=== PATIENT | male | born 1940 | race Caucasian/White ===

== ENCOUNTER 2020-01-27 07:38 | Outpatient (REF) | payer MEDICARE, OTHER, SELFPAY ==
[2020-01-27 11:32] LABS: Hematocrit 49.7 % (42-52); Hemoglobin 16.5 g/dl (14.0-18.0); Mean Corpuscular HGB Conc 33.2 g/dl (31.0-36.0); Mean Corpuscular Volume 90.4 fL (80-98); Mean Platelet Volume 9.6 fL (9.4-12.4); Platelet Count 142 X10*3/uL (160-400); Red Cell Distribution Width 16.1 % (11.0-16.0); White Blood Count 5.7 X10*3/uL (4.8-10.8)
[2020-01-27 12:04] LABS: Iron 110 mcg/dL (45-160); Percent Iron Saturation 40 % (15-50); Total Iron Binding Capacity 274 mcg/dL (228-428); Unsaturated Iron Binding 164 ug/dL
[2020-01-27 12:07] LABS: Ferritin 56 ng/mL (20-250)
== END 2020-01-27 07:39 | disposition home or self-care (01) ==
LOC: HO.HMGCLDS 07:38
PROVIDERS: PCP Internal Medicine; Visit Provider Internal Medicine
DX: D50.9 Iron deficiency anemia, unspecified (principal); I10 Essential (primary) hypertension
CPT/HCPCS: 36415; 82728; 83540; 85027

== ENCOUNTER 2020-05-09 08:08 | Outpatient (REF) | payer MEDICARE, SELFPAY ==
[2020-05-09 11:31] LABS: Basophils Absolute Auto 0.1 X10*3/uL (0.0-0.2); Eosinophils Absolute Auto 0.3 X10*3/uL (0.0-0.4); Eosinophils Percent Auto 4.2 % (0-4); Hematocrit 47.6 % (42-52); Hemoglobin 15.3 g/dl (14.0-18.0); Imm Gran Abs Auto 0.02 X10*3/uL (0.00-0.03); Imm Gran Pct Auto 0.3 % (0.0-0.4); Lymphocytes Absolute Auto 2.1 X10*3/uL (1.2-4.9); Lymphocytes Percent Auto 35.7 % (20-40); MANUAL DIFF FLAG SCAN; Mean Corpuscular HGB Conc 32.1 g/dl (31.0-36.0); Mean Corpuscular Volume 96.4 fL (80-98); Mean Platelet Volume 10.6 fL (9.4-12.4); Monocytes Absolute Auto 0.6 X10*3/uL (0.1-1.2); Monocytes Percent Auto 9.5 % (2-11); Neutrophils Percent Auto 49.3 % (45-73); PLT CLUMP 1; Red Blood Count 4.94 X10*6/uL (4.60-5.80); SCAN SMEAR FLAG 1
[2020-05-09 12:39] LABS: SLIDE REVIEW VERIFIED
[2020-05-09 13:54] LABS: Alanine Aminotransferase 15 U/L (0-40); Anion Gap 17 (12-20); Aspartate Amino Transferase 29 U/L (5-37); Blood Urea Nitrogen 17 mg/dL (9-16); Calcium 8.6 mg/dL (8.4-10.2); Carbon Dioxide 20 mmol/L (22-29); Chloride 111 mmol/L (96-108); Cholesterol 103 mg/dL; Estimated Glomerular Filt Rate > 60; Glucose Fasting 107 mg/dL (60-99); HDL Cholesterol 34 mg/dL; Iron 64 mcg/dL (45-160); LDL Cholesterol Calculated 54 mg/dl; Percent Iron Saturation 23 % (15-50); Potassium 4.6 mmol/L (3.3-5.1); Sodium 143 mmol/L (135-145); Total Iron Binding Capacity 282 mcg/dL (228-428); Triglycerides 78 mg/dL; Unsaturated Iron Binding 218 ug/dL; Uric Acid 5.6 mg/dL (3.4-7.0)
== END 2020-05-09 08:09 | disposition home or self-care (01) ==
LOC: HO.HMGCLDS 08:08
PROVIDERS: PCP Internal Medicine; Visit Provider Internal Medicine
DX: E78.2 Mixed hyperlipidemia (principal); I71.4 Abdominal aortic aneurysm, without rupture; C16.0 Malignant neoplasm of cardia; I10 Essential (primary) hypertension; M10.9 Gout, unspecified; Z86.2 Personal history of diseases of the blood and blood-forming organs and certain disorders involving the immune mechanism
CPT/HCPCS: 36415; 80048; 80061; 83540; 84450; 84460; 84550; 85025

== ENCOUNTER 2020-06-22 11:15 | Outpatient (REF) | payer MEDICARE, SELFPAY ==
--- NOTE | ~2020-06-22 | XR_ITS ---
EXAMINATION: XR FOOT, LEFT CLINICAL INFORMATION: Left foot pain COMPARISON: None TECHNIQUE: AP, lateral, and oblique views of the left foot. FINDINGS: No acute fracture or dislocation. Small first metatarsophalangeal joint marginal osteophytes, with accompanying joint space narrowing. Small marginal osteophytes along the dorsal intertarsal articulation. Achilles tendon enthesopathy. Vascular calcifications. XR/XR foot LT min 3V IMPRESSION: [id number] first metatarsophalangeal joint arthrosis. Achilles tendon enthesopathy.
[2020-06-22 13:54] LABS: MANUAL DIFF FLAG NO
[2020-06-22 14:07] LABS: Basophils Percent Auto 0.7 % (0-2); Eosinophils Absolute Auto 0.2 X10*3/uL (0.0-0.4); Eosinophils Percent Auto 2.5 % (0-4); Hematocrit 46.1 % (42-52); Hemoglobin 15.5 g/dl (14.0-18.0); Imm Gran Abs Auto 0.02 X10*3/uL (0.00-0.03); Imm Gran Pct Auto 0.3 % (0.0-0.4); Lymphocytes Absolute Auto 1.5 X10*3/uL (1.2-4.9); Lymphocytes Percent Auto 24.5 % (20-40); Mean Corpuscular HGB Conc 33.6 g/dl (31.0-36.0); Mean Corpuscular Hemoglobin 30.7 pg (27.0-33.0); Mean Corpuscular Volume 91.3 fL (80-98); Mean Platelet Volume 10.2 fL (9.4-12.4); Monocytes Absolute Auto 0.5 X10*3/uL (0.1-1.2); Monocytes Percent Auto 8.7 % (2-11); Neutrophils Absolute Auto 3.8 X10*3/uL (2.0-8.3); Neutrophils Percent Auto 63.3 % (45-73); Platelet Count 185 X10*3/uL (160-400); Red Blood Count 5.05 X10*6/uL (4.60-5.80); Red Cell Distribution Width 14.6 % (11.0-16.0)
[2020-06-22 14:26] LABS: Alanine Aminotransferase 188 U/L (0-40); Albumin Level 3.6 g/dL (3.5-5.0); Alkaline Phosphatase 402 U/L (39-117); Anion Gap 13 (12-20); Aspartate Amino Transferase 406 U/L (5-37); Blood Urea Nitrogen 14 mg/dL (9-16); Calcium 9.1 mg/dL (8.4-10.2); Carbon Dioxide 27 mmol/L (22-29); Chloride 107 mmol/L (96-108); Estimated Glomerular Filt Rate > 60; Gamma Glutamyl Transpeptidase 428 U/L (11-51); Glucose Random 111 mg/dL (60-115); Potassium 4.6 mmol/L (3.3-5.1); Sodium 142 mmol/L (135-145); Total Protein 6.3 g/dL (6.5-8.0)
[2020-06-22 14:32] LABS: Alanine Aminotransferase 188 U/L (0-40); Aspartate Amino Transferase 401 U/L (5-37); Cholesterol 96 mg/dL; HDL Cholesterol 30 mg/dL; LDL Cholesterol Calculated 52 mg/dl; Triglycerides 70 mg/dL
[2020-06-22 15:28] LABS: Erythrocyte Sedimentation Rate 12 MM/HR (0-15)
== END 2020-06-22 11:16 | disposition home or self-care (01) ==
LOC: HO.HMGCX 11:15
PROVIDERS: PCP Internal Medicine; Visit Provider Internal Medicine Medical Oncology
DX: M79.672 Pain in left foot (principal); C16.0 Malignant neoplasm of cardia; E78.2 Mixed hyperlipidemia; E66.3 Overweight
CPT/HCPCS: 36415; 73630; 80053; 80061; 82378; 82977; 84450; 84460; 85025; 85652

== ENCOUNTER 2020-06-24 17:09 | Emergency (ER) | payer OTHER, MEDICARE, SELFPAY ==
--- NOTE | ~2020-06-24 | US_ITS ---
EXAMINATION: US ABDOMEN LIMITED CLINICAL INFORMATION: Right upper quadrant abnormal LFTs.. COMPARISON: None TECHNIQUE: Real-time imaging of the right upper quadrant abdominal viscera. FINDINGS: PANCREAS: Normal. LIVER: There is increased liver echogenicity with anechoic focal lesion in left hepatic lobe measuring 0.9 x 0.6 x 0.8 cm and anechoic lesion in the right hepatic lobe measuring 2.6 x 2.2 x 1.9 cm. Previously right hepatic cyst measured 3.6 x 2.6 x 2.3 cm. The liver size is normal. There is normal hepatic contour. There is no intrahepatic biliary duct dilatation seen. GALLBLADDER: There are multiple echogenic impacted stones without wall thickening. There is no pericholecystic fluid collection. COMMON BILE DUCT: Normal in caliber measuring 0.7 cm in diameter. RIGHT KIDNEY: There is normal cortical thickening. There are multiple anechoic cysts seen. Upper pole cyst measures 7.3 x 5.5 x 5.7 cm. Midpole cyst measures 2.0 x 1.8 x 1.7 cm and 2.6 x 2.3 x 2.4 cm, lower pole cyst measures 1.4 x 1.1 x 1.0 cm. The kidney measures 13.0 cm in maximum dimension. No echogenic stones or hydronephrosis seen. FREE FLUID: None. US/US abdomen limited IMPRESSION: Hepatic steatosis without focal lesion. 2 hepatic cysts. The left hepatic cyst is new. Multiple right renal cysts. Cholelithiasis with impacted stones but no wall thickening seen. There is no tenderness in the right upper quadrant.
[2020-06-24 17:20] VITALS: BP 147/78; PULSE 65; RESP 12; TEMP 37.1; O2SAT 99; BMI 23.6
[2020-06-24 18:13] VITALS: BP 127/60; PULSE 65; RESP 16; O2SAT 98
[2020-06-24 18:47] LABS: MANUAL DIFF FLAG NO
[2020-06-24 18:48] LABS: Basophils Absolute Auto 0.1 X10*3/uL (0.0-0.2); Basophils Percent Auto 0.7 % (0-2); Eosinophils Absolute Auto 0.3 X10*3/uL (0.0-0.4); Eosinophils Percent Auto 3.6 % (0-4); Hemoglobin 13.4 g/dl (14.0-18.0); Imm Gran Abs Auto 0.01 X10*3/uL (0.00-0.03); Imm Gran Pct Auto 0.1 % (0.0-0.4); Lymphocytes Absolute Auto 2.5 X10*3/uL (1.2-4.9); Lymphocytes Percent Auto 36.7 % (20-40); Mean Corpuscular HGB Conc 33.5 g/dl (31.0-36.0); Mean Corpuscular Hemoglobin 30.2 pg (27.0-33.0); Mean Corpuscular Volume 90.3 fL (80-98); Mean Platelet Volume 9.4 fL (9.4-12.4); Monocytes Absolute Auto 0.9 X10*3/uL (0.1-1.2); Monocytes Percent Auto 13.2 % (2-11); Neutrophils Absolute Auto 3.1 X10*3/uL (2.0-8.3); Neutrophils Percent Auto 45.7 % (45-73); Platelet Count 176 X10*3/uL (160-400); Red Blood Count 4.43 X10*6/uL (4.60-5.80); Red Cell Distribution Width 14.6 % (11.0-16.0); White Blood Count 6.9 X10*3/uL (4.8-10.8)
[2020-06-24 18:54] LABS: INTERNATIONAL NORM RATIO 1.2 (0.9-1.1); Prothrombin Time 14.4 SEC (10.8-13.0)
[2020-06-24 19:14] LABS: Partial Thromboplastin Time 44.7 SEC (24.1-38.0)
--- NOTE | 2020-06-24 19:20 | ED.GENADULT ---
HPI - General Adult General Chief complaint: General Medical Stated complaint: liver Issue Time Seen by Provider: 06/24/20 18:04 Source: patient Mode of arrival: ambulatory History of Present Illness HPI narrative: 79-year-old male with a past medical history of abdominal aortic aneurysm, adenocarcinoma of the esophagus, anemia, HTN, gout, iron deficiency anemia, HLD, sent to ED by PCP for abnormal LFTs noted on outpatient labs. Patient reports decreased p.o. intake/anorexia, is otherwise asymptomatic. Denies fever, chills, nausea/vomiting, diarrhea/constipation, abdominal pain, dysuria/hematuria Onset (ago): day(s) Related Data Home Medications Medication Instructions Recorded Confirmed meclizine 25 mg tablet 25 mg PO BID 02/04/20 05/12/20 metoprolol tartrate 25 mg tablet 25 mg PO BID 02/04/20 05/12/20 omeprazole 10 mg capsule,delayed 10 mg PO BID cap 02/04/20 05/12/20 release simvastatin 40 mg tablet 40 mg PO DAILY 02/04/20 05/12/20 Previous Rx's Medication Instructions Recorded allopurinol 100 mg tablet 200 mg PO DAILY #60 tab 02/04/20 indomethacin 50 mg capsule 50 mg PO .qd PRN #10 cap 02/04/20 Allergies Allergy/AdvReac Type Severity Reaction Status Date / Time No Known Allergies Allergy Verified 05/12/20 09:57 [No Known Allergies*] Review of Systems Review of Systems: Constitutional: No Weight loss, No Fever, No Chills, +anorexia Cardiovascular: No Chest Pain, No SOB, No Edema, No Palpitations Respiratory: No Cough, No Sputum, No Dyspnea Gastrointestinal: No Nausea, No Vomiting, No Diarrhea, No Constipation, No Abdominal pain Genitourinary: No Dysuria, No Urinary Frequency, No Hematuria, No Flank Pain Musculoskeletal: No joint pain, No Myalgias, No Joint Swelling Skin: No Skin Lesions, No rash Neuro: No Weakness, No Numbness, No Dizziness, No Headache Yes all other systems are reviewed and are negative PMFSH Past Medical History Attestation statement: The following information was validated with the patient. Medical History Abdominal aortic aneurysm without rupture Adenocarcinoma of gastroesophageal junction Anemia Essential hypertension Gout Hx of iron deficiency anemia Mixed dyslipidemia Surgical History Hx of esophagectomy Family History Family History Father No problems noted. Mother No problems noted. Social History Social History Alcohol intake: current Alcohol intake frequency: holidays/special occasions only Smoking Status: Never smoker Use of substances other than those prescribed or required for medical reasons: No Advance Directives: No Advance Directives Information Provided: Yes Physical Exam Vital Signs: Vital Signs: Last Vital Signs Temp 98.7 F 06/24/20 17:20 Pulse 65 06/24/20 18:13 Resp 16 06/24/20 18:13 BP 127/60 06/24/20 18:13 Pulse Ox 98 06/24/20 18:13 Body Mass Index 23.6 Const: General: cooperative, healthy appearing and no acute distress Orientation/consciousness: patient oriented x3 Limitations: no limitations HENMT: Head: Yes normal to inspection Ears: hearing grossly normal bilaterally General nose exam: Normal external nose present Face and sinus: Yes normal facial exam Eyes: General: appearance normal, both eyes and all related structures EOM: EOMs intact bilaterally Neck: Neck: Yes normal visual inspection and Yes no meningeal signs Resp: Effort & Inspection: normal respiratory effort Auscultation: clear to auscultation bilaterally, no rales and no wheezes Cardio: Rate: regular rate Heart sounds: S1 normal heart sound present and S2 normal heart sound present GI: Inspection: Yes normal to inspection Palpation (GI): Soft to palpation, nontender, no guarding and not rigid : General: Yes no CVA tenderness Back/Spine/Pelvis: Back: no CVA tenderness Skin: Rashes: no rashes Wounds: no wounds Neuro: General: patient oriented x3 and no meningeal signs Extrem: General: Yes normal to inspection Course Course Course Narrative: -no leukocytosis, H&H stable, with slight drop from 06/22/2020 but similar to priors, AST/ALT elevated but improved from prior US abdomen limited IMPRESSION: Hepatic steatosis without focal lesion. 2 hepatic cysts. The left hepatic cyst is new. Multiple right renal cysts. Cholelithiasis with impacted stones but no wall thickening seen. There is no tenderness in the right upper quadrant. >> results discussed with patient including worrisome signs and symptoms and strict return precautions. Patient is to follow-up with general surgery. He verbalized understanding feel safe for discharge home Medical Decision Making MDM Narrative Medical decision making narrative: 79-year-old male with a past medical history of abdominal aortic aneurysm, adenocarcinoma of the esophagus, anemia, HTN, gout, iron deficiency anemia, HLD, sent to ED by PCP for abnormal LFTs noted on outpatient labs. On exam VS as, NAD/well-appearing, abdomen soft/nontender. Concern for cholelithiasis/CBD obstruction vs pancreatic abnl. Unlikely cholecystitis without tenderness on exam Plan: Labs, UA, abdomen ultrasound Lab Data Result diagrams: 06/24/20 18:41 06/24/20 18:41 Labs: Lab Results 06/24/20 06/24/20 06/24/20 Range/Units 18:41 18:41 18:41 WBC 6.9 (4.8-10.8) X10*3/uL RBC 4.43 L (4.60-5.80) X10*6/uL Hgb 13.4 L (14.0-18.0) g/dl Hct 40.0 L (42-52) % MCV 90.3 (80-98) fL MCH 30.2 (27.0-33.0) pg MCHC 33.5 (31.0-36.0) g/dl RDW 14.6 (11.0-16.0) % Plt Count 176 (160-400) X10*3/uL MPV 9.4 (9.4-12.4) fL Immature Gran % (Auto) 0.1 (0.0-0.4) % Neut % (Auto) 45.7 (45-73) % Lymph % (Auto) 36.7 (20-40) % Bracken % (Auto) 13.2 H (2-11) % Eos % (Auto) 3.6 (0-4) % Baso % (Auto) 0.7 (0-2) % Lymph # (Auto) 2.5 (1.2-4.9) X10*3/uL Bracken # (Auto) 0.9 (0.1-1.2) X10*3/uL Eos # (Auto) 0.3 (0.0-0.4) X10*3/uL Baso # (Auto) 0.1 (0.0-0.2) X10*3/uL Abs Immat Gran (auto) 0.01 (0.00-0.03) X10*3/uL Absolute Neuts (auto) 3.1 (2.0-8.3) X10*3/uL Absolute Nucleated RBC 0.000 (0.0-0.012) X10*3/uL Nucleated RBC % (auto) 0.0 (0.0-0.2) /100WBC PT 14.4 H (10.8-13.0) SEC INR 1.2 H (0.9-1.1) APTT (24.1-38.0) SEC Sodium 144 (135-145) mmol/L Potassium 4.1 (3.3-5.1) mmol/L Chloride 113 H (96-108) mmol/L Carbon Dioxide 22 (22-29) mmol/L Anion Gap 13 (12-20) BUN 15 (9-16) mg/dL Creatinine 1.02 (0.5-1.4) mg/dL Estim Creat Clear Calc 58.6 Estimated GFR > 60 Random Glucose 82 (60-115) mg/dL Calcium 8.5 D (8.4-10.2) mg/dL Magnesium 1.9 (1.6-2.6) mg/dL Total Bilirubin 0.7 (0.0-1.0) mg/dL Direct Bilirubin 0.3 (0.0-0.5) mg/dL AST 109 H (5-37) U/L ALT 95 H (0-40) U/L Alkaline Phosphatase 351 H (39-117) U/L Total Protein 5.6 L (6.5-8.0) g/dL Albumin 3.2 L (3.5-5.0) g/dL Lipase 5 L (8-78) U/L 06/24/20 Range/Units 18:41 WBC (4.8-10.8) X10*3/uL RBC (4.60-5.80) X10*6/uL Hgb (14.0-18.0) g/dl Hct (42-52) % MCV (80-98) fL MCH (27.0-33.0) pg MCHC (31.0-36.0) g/dl RDW (11.0-16.0) % Plt Count (160-400) X10*3/uL MPV (9.4-12.4) fL Immature Gran % (Auto) (0.0-0.4) % Neut % (Auto) (45-73) % Lymph % (Auto) (20-40) % Bracken % (Auto) (2-11) % Eos % (Auto) (0-4) % Baso % (Auto) (0-2) % Lymph # (Auto) (1.2-4.9) X10*3/uL Bracken # (Auto) (0.1-1.2) X10*3/uL Eos # (Auto) (0.0-0.4) X10*3/uL Baso # (Auto) (0.0-0.2) X10*3/uL Abs Immat Gran (auto) (0.00-0.03) X10*3/uL Absolute Neuts (auto) (2.0-8.3) X10*3/uL Absolute Nucleated RBC (0.0-0.012) X10*3/uL Nucleated RBC % (auto) (0.0-0.2) /100WBC PT (10.8-13.0) SEC INR (0.9-1.1) APTT 44.7 H (24.1-38.0) SEC Sodium (135-145) mmol/L Potassium (3.3-5.1) mmol/L Chloride (96-108) mmol/L Carbon Dioxide (22-29) mmol/L Anion Gap (12-20) BUN (9-16) mg/dL Creatinine (0.5-1.4) mg/dL Estim Creat Clear Calc Estimated GFR Random Glucose (60-115) mg/dL Calcium (8.4-10.2) mg/dL Magnesium (1.6-2.6) mg/dL Total Bilirubin (0.0-1.0) mg/dL Direct Bilirubin (0.0-0.5) mg/dL AST (5-37) U/L ALT (0-40) U/L Alkaline Phosphatase (39-117) U/L Total Protein (6.5-8.0) g/dL Albumin (3.5-5.0) g/dL Lipase (8-78) U/L Discharge Plan Discharge Clinical Impression: Cholelithiasis Qualifiers: Cholelithiasis location: gallbladder Cholecystitis presence: without cholecystitis Patient Disposition: Home, Self-Care Instructions: Gallstones (ED) Additional Instructions: Your liver enzymes are elevated Your ultrasound showed multiple impacted stones in her gallbladder You need to follow-up with general surgery likely needing her gallbladder removed surgically If you develop abdominal pain, fever, nausea/vomiting please return to the ED Prescriptions: No Action omeprazole 10 mg capsule,delayed release(DR/EC) 10 mg PO BID RF: 0 meclizine 25 mg tablet 25 mg PO BID RF: 0 metoprolol tartrate 25 mg tablet 25 mg PO BID RF: 0 simvastatin 40 mg tablet 40 mg PO DAILY RF: 0 allopurinol 100 mg tablet 200 mg PO DAILY Qty: 60 RF: 5 indomethacin 50 mg capsule 50 mg PO .qd PRN (Reason: Acute attacks of gout) Qty: 10 RF: 0 Referrals: Florentin Nicolas MD [Physician] - 3 days
[2020-06-24 19:32] LABS: Alanine Aminotransferase 95 U/L (0-40); Albumin Level 3.2 g/dL (3.5-5.0); Alkaline Phosphatase 351 U/L (39-117); Anion Gap 13 (12-20); Aspartate Amino Transferase 109 U/L (5-37); Bilirubin Direct 0.3 mg/dL (0.0-0.5); Bilirubin Total 0.7 mg/dL (0.0-1.0); Blood Urea Nitrogen 15 mg/dL (9-16); Calcium 8.5 mg/dL (8.4-10.2); Carbon Dioxide 22 mmol/L (22-29); Chloride 113 mmol/L (96-108); Creatinine Clr Calc Pharmacy 58.6; Estimated Glomerular Filt Rate > 60; Glucose Random 82 mg/dL (60-115); Lipase 5 U/L (8-78); Magnesium 1.9 mg/dL (1.6-2.6); Potassium 4.1 mmol/L (3.3-5.1); Sodium 144 mmol/L (135-145); Total Protein 5.6 g/dL (6.5-8.0)
[2020-06-24 20:15] VITALS: BP 113/74; PULSE 50; RESP 16; TEMP 36.6; O2SAT 97
== END 2020-06-24 20:37 | disposition home or self-care (01) ==
PROVIDERS: Physician Assistant; Emergency Provider Emergency Medicine; PCP Internal Medicine
DX: K80.20 Calculus of gallbladder without cholecystitis without obstruction (principal); E78.2 Mixed hyperlipidemia; D64.9 Anemia, unspecified; I10 Essential (primary) hypertension; C16.0 Malignant neoplasm of cardia; Z79.02 Long term (current) use of antithrombotics/antiplatelets; Z79.899 Other long term (current) drug therapy
CPT/HCPCS: 36415; 76705; 80048; 80076; 83690; 83735; 85025; 85610; 85730; 99284

== ENCOUNTER → 2020-07-05 14:52 | Outpatient (BNVA) | payer MEDICARE, OTHER, SELFPAY | PROVIDERS: PCP Internal Medicine; Referring Provider Internal Medicine; Visit Provider Surgery | DX: K80.20 Calculus of gallbladder without cholecystitis without obstruction (principal); R94.5 Abnormal results of liver function studies | CPT/HCPCS: 99202 ==

== ENCOUNTER 2020-07-12 11:14 | Outpatient (REF) | payer MEDICARE, SELFPAY ==
[2020-07-12 14:03] LABS: MANUAL DIFF FLAG NO
[2020-07-12 14:13] LABS: Basophils Absolute Auto 0.1 X10*3/uL (0.0-0.2); Basophils Percent Auto 0.8 % (0-2); Eosinophils Absolute Auto 0.1 X10*3/uL (0.0-0.4); Eosinophils Percent Auto 2.4 % (0-4); Hematocrit 42.2 % (42-52); Hemoglobin 14.6 g/dl (14.0-18.0); Imm Gran Abs Auto 0.02 X10*3/uL (0.00-0.03); Imm Gran Pct Auto 0.3 % (0.0-0.4); Lymphocytes Absolute Auto 1.3 X10*3/uL (1.2-4.9); Lymphocytes Percent Auto 21.2 % (20-40); Mean Corpuscular HGB Conc 34.6 g/dl (31.0-36.0); Mean Corpuscular Hemoglobin 30.8 pg (27.0-33.0); Mean Platelet Volume 10.8 fL (9.4-12.4); Monocytes Absolute Auto 0.6 X10*3/uL (0.1-1.2); Monocytes Percent Auto 9.5 % (2-11); Neutrophils Absolute Auto 3.9 X10*3/uL (2.0-8.3); Neutrophils Percent Auto 65.8 % (45-73); Platelet Count 178 X10*3/uL (160-400); Red Blood Count 4.74 X10*6/uL (4.60-5.80); Red Cell Distribution Width 18.1 % (11.0-16.0); White Blood Count 5.9 X10*3/uL (4.8-10.8)
[2020-07-12 14:44] LABS: Alanine Aminotransferase 109 U/L (0-40); Albumin Level 3.5 g/dL (3.5-5.0); Alkaline Phosphatase 534 U/L (39-117); Anion Gap 14 (12-20); Aspartate Amino Transferase 153 U/L (5-37); Bilirubin Total 12.2 mg/dL (0.0-1.0); Blood Urea Nitrogen 15 mg/dL (9-16); Calcium 9.2 mg/dL (8.4-10.2); Carbon Dioxide 24 mmol/L (22-29); Chloride 107 mmol/L (96-108); Estimated Glomerular Filt Rate > 60; Gamma Glutamyl Transpeptidase 1251 U/L (11-51); Glucose Random 110 mg/dL (60-115); Potassium 4.8 mmol/L (3.3-5.1); Sodium 140 mmol/L (135-145); Total Protein 6.1 g/dL (6.5-8.0)
[2020-07-13 08:00] LABS: HBS Num1 0.23 mIU/mL (0-7.99); HBc Num1 0.12 S/CO (0.00-0.79); Hepatitis A Antibody IgM 0.14 Index (0-0.79); Hepatitis B Core Antibody Nonreactive (Nonreactive); ~HepC Num1 0.78 S/CO (0.00-0.79); ~Hepatitis A Antibody IgM Nonreactive (Nonreactive); ~Hepatitis B Surface Antibody NONREACTIVE (Nonreactive); ~Hepatitis C Antibody Nonreactive (Nonreactive)
[2020-07-13 08:27] LABS: HBsAGNum1 0.18 S/CO (0.00-0.99); Hepatitis B Surface Antigen Negative (Negative)
== END 2020-07-12 11:15 | disposition home or self-care (01) ==
LOC: HO.HMGCLDS 11:14
PROVIDERS: PCP Internal Medicine; Visit Provider Internal Medicine Medical Oncology
DX: C16.0 Malignant neoplasm of cardia (principal); R10.32 Left lower quadrant pain; R94.5 Abnormal results of liver function studies
CPT/HCPCS: 36415; 80053; 82378; 82977; 85025; 86704; 86706; 86709; 86803; 87340

== ENCOUNTER 2020-07-13 10:07 | Inpatient (IN) | payer MEDICARE, SELFPAY ==
[2020-07-13] VITALS (11 sets, daily range): BP systolic 116–164; BP diastolic 60–82; PULSE 53–98; RESP 12–16; TEMP 36–37.1; O2SAT 96–100; BMI 22.9
--- NOTE | ~2020-07-13 | CT_ITS ---
EXAMINATION: CT ABDOMEN AND PELVIS WITH CONTRAST CLINICAL INFORMATION: Abnormal liver. History of cancer. COMPARISON: Previous CT of the abdomen and pelvis July 2012 and abdominal ultrasound most recent 06/24/2020 TECHNIQUE: Multidetector volumetric images were obtained from the superior aspect of the liver through the pubic symphysis following administration 85 mL of Omnipaque 350 intravenous contrast. Sagittal and coronal reformatted images were obtained on the technologist's workstation. Oral contrast: Yes This CT examination was performed using dose optimization techniques as appropriate, variously including the following: *Automated exposure control *Adjustment of mA and/or kV according to patient size (this includes techniques or standardized protocols for targeted exams where dose is matched to indication/reason for exam; i.e. extremities or head) *Use of iterative reconstruction technique DLP: 473 mGy-cm FINDINGS: LUNG BASES: There are small calcified pulmonary nodules at the lung bases. There is dilatation of the distal thoracic esophagus. This is with fluid. There are postsurgical changes seen at the GE junction. Esophageal dilatation appears increased from July 2018 exam. LIVER, GALLBLADDER, AND BILIARY TREE: There is new intra and extrahepatic biliary duct dilatation. The common bile duct measures 1.5 cm and is dilated down to the head of the pancreas. There are gallstones in the gallbladder. Gallbladder is upper normal in size. There are innumerable liver cysts. The largest measures 2.5 cm in the right lobe of the liver. PANCREAS: There is low-attenuation seen in the uncinate process of the head of the pancreas worrisome for a mass. This measures approximately 2.7 x 3.2 cm axial image 30 series 3. There is dilatation of the main pancreatic duct measuring up to 8 mm. There are atrophic changes of the body and tail of the pancreas. There may be a separate cyst seen in the pancreatic head that measures 1 cm. SPLEEN: Unremarkable. ADRENAL GLANDS: Unremarkable. KIDNEYS AND URETERS: There are small bilateral renal stones. There are multiple bilateral renal cysts, largest measuring 5 x 7 cm in the upper pole of the right kidney. BLADDER: Unremarkable. GASTROINTESTINAL TRACT: There is mild diverticulosis of the colon. No evidence of diverticulitis is seen. There is question of mild wall thickening versus changes due to underdistention of the sigmoid colon. Small bowel is unremarkable. The appendix is unremarkable. There are postsurgical changes at the GE junction region. ABDOMINAL WALL: No significant hernia is appreciated. LYMPH NODES: There are small upper abdominal mesenteric or retroperitoneal and peripancreatic lymph nodes. No enlarged lymph nodes are seen. There is no ascites. VASCULAR: There is evidence of severe atherosclerotic disease. There is an aneurysm of the lower abdominal aorta measuring 4.1 x 3.2 cm in transverse and AP dimension. This does not appear appreciably changed from 2019 exam. The splenic vein is patent. The portal veins are patent. The SMA SMV and celiac axis are patent. PELVIC VISCERA: The prostate gland is enlarged. OSSEOUS STRUCTURES: There are degenerative changes of the spine. There is question of a 1 cm lytic lesion versus osteopenia of the left superior pubic ramus axial image [address]/CT abdomen pelvis w con IMPRESSION: 3 cm low-attenuation lesion in the head of the pancreas worrisome for mass. There is intrahepatic and extrahepatic biliary duct dilatation and dilatation of the main pancreatic duct. Upper normal-size gallbladder with gallstones. Multiple liver cysts. Small peripancreatic and upper abdominal retroperitoneal lymph nodes. Question mild wall thickening of the sigmoid colon versus changes due to underdistention. Diverticulosis of the colon. Increasing dilatation of the distal thoracic esophagus which is fluid-filled compared to previous exams. Enlarged prostate gland. Bilateral renal cysts. Small bilateral renal stones. Stable 4.1 x 3.2 cm lower abdominal aortic aneurysm from 2019. Question osteopenia versus 1 cm lytic lesion in the left superior pubic ramus.
--- NOTE | ~2020-07-13 | FL_ITS ---
EXAMINATION: XR FLUOROSCOPY WITH IMAGES CLINICAL INFORMATION: Lesion uncinate process pancreas with biliary and pancreatic ductal distention. COMPARISON: CT abdomen with contrast 07/13/2020, MR abdomen without and with contrast 07/13/2020, ultrasound abdomen 06/24/2020 TECHNIQUE: Fluoroscopy performed by Dr. Obi Ayala. Fluoroscopy time: 4.3 minutes Cumulative dose: 16.14 mGy Images: 3 FINDINGS: There is dilatation common duct with distal narrowing. Final image shows biliary stent in position. FL/FL guidance in OR IMPRESSION: Fluoroscopy for ERCP and stent placement.
--- NOTE | ~2020-07-13 | MR_ITS ---
EXAMINATION: MR ABDOMEN WITHOUT AND WITH CONTRAST CLINICAL INFORMATION: Pancreatic mass COMPARISON: CT from 07/13/2020 TECHNIQUE: MR abdomen was performed without and with use of 7.5 mL intravenous Gadavist gadolinium contrast. Postcontrast images are performed in multiphase dynamic sequences. Imaging was performed in 3 planes. FINDINGS: LUNG BASES: The visualized lung bases are unremarkable. LIVER, GALLBLADDER, AND BILIARY TREE: The liver is normal in size, smooth in contour, and normal in signal. T2 bright lesions are seen in the liver. The largest is seen in segment 6 measuring there is no enhancement on postcontrast imaging, consistent with multiple cysts.. Diffuse intrahepatic biliary ductal dilatation is present. Stones are seen layering in the gallbladder lumen. No gallbladder wall thickening or pericholecystic fluid. The common bile duct is dilated measuring 1 cm. This narrows promptly in the region of the pancreatic head. PANCREAS: There is diffuse pancreatic atrophy with ductal dilatation. The pancreatic duct measures 0.6 cm. There is a heterogeneously T2 bright mass in the region of the pancreatic head/uncinate. This measures 3.3 x 3.3 cm. This shows low signal on T1-weighted imaging. There is mild enhancement on postcontrast imaging, though there is central lack of enhancement which could be associated with necrosis. Adjacent cysts are seen in the pancreas. The mass appears separate from the superior mesenteric artery. This appears to abut the superior mesenteric vein with approximately 90 degrees of coverage. SPLEEN: Normal. ADRENAL GLANDS: Normal. KIDNEYS AND URETERS: The kidneys are normal in size, shape, and enhance symmetrically. No hydronephrosis. No perinephric stranding. Multiple bilateral simple renal cysts. No follow-up imaging recommended. GASTROINTESTINAL TRACT: No bowel obstruction. No ascites or fluid collection. Gastric pull-through noted. ABDOMINAL WALL: No significant hernia is appreciated. LYMPH NODES: No lymphadenopathy. VASCULAR: Unremarkable. OSSEOUS STRUCTURES: Marrow signal normal. MR/MR abdomen wo/w con IMPRESSION: Mass in the pancreatic head/uncinate correlating to the appearance on prior CT. This is concerning for pancreatic neoplasm. Biliary and pancreatic ductal dilatation with distal pancreatic atrophy.
--- NOTE | 2020-07-13 10:22 | ED_ITS ---
HPI - General Adult General Chief complaint: General Medical Stated complaint: abnormal labs? Time Seen by Provider: 07/13/20 10:22 Source: patient Mode of arrival: ambulatory Limitations: no limitations History of Present Illness HPI narrative: Patient with high liver function test. Seen by Dr. Pastor and was sent to the ED. Patient with esophageal cancer but had surgery and radiation therapy. Onset (ago): week(s) Relieving factors: none Exacerbating factors: none Associated symptoms: denies other symptoms Related Data Home Medications Medication Instructions Recorded Confirmed meclizine 25 mg tablet 25 mg PO BID 02/04/20 07/13/20 metoprolol tartrate 25 mg tablet 25 mg PO BID 02/04/20 07/13/20 omeprazole 10 mg capsule,delayed 10 mg PO BID cap 02/04/20 07/13/20 release simvastatin 40 mg tablet 40 mg PO BEDTIME 02/04/20 07/13/20 allopurinol 100 mg PO DAILY 07/13/20 07/13/20 [id number]-[id number] 1 tab PO DAILY 07/13/20 07/13/20 [Centrum Silver Men] sucralfate 5 ml PO DAILY PRN 07/13/20 07/13/20 Allergies Allergy/AdvReac Type Severity Reaction Status Date / Time No Known Allergies Allergy Verified 07/13/20 10:11 [No Known Allergies*] Review of Systems Constitutional: Constitutional: Reports no additional constitutional complaints Eyes: Eyes: Reports no additional eye complaints ENT: Denies dizziness Cardiovascular: Cardiovascular: Reports no additional cardiovascular complaints Respiratory: Respiratory: Reports as per HPI Gastrointestinal: Gastrointestinal: Reports no additional gastrointestinal complaints Musculoskeletal: Musculoskeletal: Reports no additional musculoskeletal complaints Integumentary/Breasts: Skin/Breast: Denies rash Neurologic: Reports system reviewed and no additional complaints, except as documented, Denies dizziness and Denies Sensory deficit (Neuro) Psychiatric: Psychiatric: Denies anxiety PMFSH Past Medical History Medical History Abdominal aortic aneurysm without rupture Abnormal LFTs Achilles tendinitis, left leg Adenocarcinoma of gastroesophageal junction Anemia Cholelithiasis Essential hypertension Gallstones Gout Hx of iron deficiency anemia Mixed dyslipidemia Surgical History Hx of esophagectomy Family History Family History Father No problems noted. Mother No problems noted. Social History Social History (Updated 07/13/20 @ 14:49 by Cleveland Contreras MD) Alcohol intake: never Patient Tobacco Use Status: Former Tobacco user Quit Date: greater than 30 years ago Use of substances other than those prescribed or required for medical reasons: No Advance Directives: Yes Advance Directives Information Provided: Yes Advance Directives on File: No Physical Exam Vital Signs: Vital Signs: Last Vital Signs Temp 98.6 F 07/13/20 16:00 Pulse 56 07/13/20 16:00 Resp 15 07/13/20 16:00 BP 159/79 H 07/13/20 16:00 Pulse Ox 99 07/13/20 16:00 Body Mass Index 22.9 Const: Other: male in no acute distress, jaundiced Nutritional Appearance: average body habitus Orientation/consciousness: oriented to person and patient oriented x3 Limitations: no limitations HENMT: Head: Yes normal to inspection Ears: external ears normal General nose exam: Normal external nose present Mouth: Normal oral and palatal mucosa present and oropharynx normal Throat: Yes posterior oropharynx normal Eyes: Other: icteric General: appearance normal, both eyes and all related structures Neck: Other: supple Neck: Yes normal visual inspection Chest: Chest palpation & inspection: normal inspection of the chest Resp: Auscultation: clear to auscultation bilaterally Cardio: Jugular venous distension: no JVD Rate: regular rate Rhythm: reg ular rhythm Heart sounds: S1 normal heart sound present and S2 normal heart sound present GI: Inspection: Yes normal to inspection Palpation (GI): Soft to palpation, nontender and No hepatosplenomegaly present Auscultation: normal bowel sounds : General: Yes no CVA tenderness Back/Spine/Pelvis: Back: no CVA tenderness Skin: General skin exam: no rashes or lesions noted Neuro: General: oriented to person and patient oriented x3 Cranial nerves: Yes CN's II-XII intact bilaterally Motor exam (neuro): 5/5 motor strength present throughout Sensory Exam: No Sensory deficit (Neuro) Extrem: General: Yes normal to inspection Psych: Appearance: grossly normal Course Course Course Narrative: patient with painless jaundice with obstructive pattern Medical Decision Making [facility] Narrative Medical decision making narrative: Patient with what seems to be head of pancreas cancer, with obstructive jaundice, Discussed with Dr. Lakhani of GI and Dr. Mejia, will admit. Lab Data Labs: Lab Results 07/13/20 Range/Units 14:04 COVID-19 (AIDE) Negative (Negative) COVID-19 Clin Com See Note Imaging Data CT scan - abdomen: Radiologist's impression: IMPRESSION: 3 cm low-attenuation lesion in the head of the pancreas worrisome for mass. There is intrahepatic and extrahepatic biliary duct dilatation and dilatation of the main pancreatic duct. Upper normal-size gallbladder with gallstones. Multiple liver cysts. Small peripancreatic and upper abdominal retroperitoneal lymph nodes. Question mild wall thickening of the sigmoid colon versus changes due to underdistention. Diverticulosis of the colon. Increasing dilatation of the distal thoracic esophagus which is fluid-filled compared to previous exams. Enlarged prostate gland. Bilateral renal cysts. Small bilateral renal stones. Stable 4.1 x 3.2 cm lower abdominal aortic aneurysm from 2019. Question osteopenia versus 1 cm lytic lesion in the left superior pubic ramus. Discharge Plan Discharge Clinical Impression: Pancreatic adenocarcinoma, Malignant obstructive jaundice Patient Disposition: Admitted As Inpatient
--- NOTE | 2020-07-13 12:35 | PC.NURSE ---
Heplock inserted in left ac with a 18 gauge insyte. Site secured and flushed with ns. pt tolerated well.
--- NOTE | 2020-07-13 12:47 | PC.NURSE ---
Patient to ct via stretcher alert and in no acute distress.
[2020-07-13] MEDS: iohexoL 350 MG/ML 100 ML INFUS..BTL IV (12:57)
--- NOTE | 2020-07-13 14:19 | P.HPHOSP_ITS ---
History of Present Illness Date of Service: 07/13/20 Chief Complaint: painless juandice 79M sent in from oncologist for painless juandice. patient has history of esophogeal cancer s/p surgery. he has been losing weight over last several months and noted to have increasing transaminases. on 06/24/20 in ED he had US w hich showed multiple stones in gallbladder, he followed with surgery, but gasllstones not felt to be etiology. patient then became jaundiced, with pale stools, and now noted to have increased bilirubin so he was sent to ED. in ED, CT abdomen showed CBD dilitation, inumerable liver cysts, supicious pancreatic head mass 2.7cm by 3.2cm. Review of Systems Review of Systems: Constitutional: Denies fever, denies Chills, +weight loss, loss of appetite Eyes: denies blurry vision ENT: denies sore throat CVS: denies chest pain Respiratory: Denies dyspnea GI: no abdominal pain : denies dysuria MSK: denies neck pain Skin: denies rash Neuro: denies specific motor weakness Psych: denies suicidal ideation Endocrine: denies heat/cold intoleratnce Hematologic: denies easy bleeding Allergy: denies hives PMFSH Medical History Abdominal aortic aneurysm without rupture Abnormal LFTs Achilles tendinitis, left leg Adenocarcinoma of gastroesophageal junction Anemia Cholelithiasis Essential hypertension Gallstones Gout Hx of iron deficiency anemia Mixed dyslipidemia Family History Father No problems noted. Mother No problems noted. Family history: reviewed and not pertinent Surgical History Hx of esophagectomy Social History (Updated 07/13/20 @ 14:49 by Cleveland Contreras MD) Alcohol intake: never Patient Tobacco Use Status: Former Tobacco user Quit Date: greater than 30 years ago Use of substances other than those prescribed or required for medical reasons: No Advance Directives: Yes Advance Directives Information Provided: Yes Advance Directives on File: No Meds Allergies Allergy/AdvReac Type Severity Reaction Status Date / Time No Known Allergies Allergy Verified 07/13/20 10:11 [No Known Allergies*] Active Medications: Current Medications Generic Name Dose Route Start Last Admin Trade Name Matiasq PRN Reason Stop Dose Admin Pharmacy Consult 1 each 07/13/20 13:50 Consult Rx Perform Med Rec MISCELLANE ONCE PRN Consult order Home Medications Medication Instructions Recorded Confirmed Last Taken Type meclizine 25 mg tablet 25 mg PO BID 02/04/20 07/13/20 07/13/20 History metoprolol tartrate 25 mg tablet 25 mg PO BID 02/04/20 07/13/20 07/13/20 History omeprazole 10 mg capsule,delayed 10 mg PO BID cap 02/04/20 07/13/20 07/13/20 History release simvastatin 40 mg tablet 40 mg PO BEDTIME 02/04/20 07/13/20 07/12/20 History allopurinol 100 mg PO DAILY 07/13/20 07/13/20 07/13/20 History jcusuxvc-[id number]-OV-lycopen-lutein 1 tab PO DAILY 07/13/20 07/13/20 07/13/20 History [Centrum Silver Men] sucralfate 5 ml PO DAILY PRN 07/13/20 07/13/20 Unknown History Physical Exam Vital Signs and Narrative: Vital Signs: Last Vital Signs Temp 97.0 F 07/13/20 10:11 Pulse 55 07/13/20 12:15 Resp 13 07/13/20 12:15 BP 129/69 07/13/20 12:15 Pulse Ox 100 07/13/20 12:15 Body Mass Index 22.9 General: no acute distress, jaundiced HEENT: atraumatic Neck: normal to visual inspection CVS: S1, S2, RRR Resp: CTA bilateral Chest: non tender GI: soft, non tender, non distended : no CVA tenderness Skin: no rashes Extremities: no edema Neuro: Oriented X3, grossly intact Psych: cooperative Results Imaging Radiologist's Impressions: Impressions Abdomen/Pelvis CT 07/13/20 12:17 IMPRESSION: 3 cm low-attenuation lesion in the head of the pancreas worrisome for mass. There is intrahepatic and extrahepatic biliary duct dilatation and dilatation of the main pancreatic duct. Upper normal-size gallbladder with gallstones. Multiple liver cysts. Small peripancreatic and upper abdominal retroperitoneal lymph nodes. Question mild wall thickening of the sigmoid colon versus changes due to underdistention. Diverticulosis of the colon. Increasing dilatation of the distal thoracic esophagus which is fluid-filled compared to previous exams. Enlarged prostate gland. Bilateral renal cysts. Small bilateral renal stones. Stable 4.1 x 3.2 cm lower abdominal aortic aneurysm from 2019. Question osteopenia versus 1 cm lytic lesion in the left superior pubic ramus. Assessment and Plan (1) Malignant obstructive jaundice: Status: Acute 79M presented with obstructive jaundice, CT concerning for pancreatic mass obstructive jaundice concern for pancreatic mass vs postoperative changes, vs recurrence of GE junction adenocarcinoma, less likely CBD stones plan for MRI + MRCP npo after midnight for possible ERCP stent, GI eval oncology eval ca 19-9 will hold statin monitor lfts htn metoprolol tartate 25mg bid gout allopurinol VTE prophylaxis - mechanical full code
--- NOTE | 2020-07-13 14:39 | HE.PHANOTE ---
Med rec complete, no issues. patient fills at a mail order pharmacy and claim history doesnt show. had med list with her
[2020-07-13 14:41] LABS: COVID-19 Test Negative (Negative); IDNOW Serial# 9DD0AD1C
--- NOTE | 2020-07-13 15:38 | PM.EVENT ---
Event Note Date of Service: 07/13/20 Event Note: GI Consult dictated Painless jaundice with double duct sign and pancreatic head mass on CT suspicious for pancreatic ca. Discussed ERCP with patient and , the are aware of risks and benefits and agree to proceed.
--- NOTE | 2020-07-13 16:03 | MHC.SHP ---
Pre-Procedural Eval Section A The patient is an INPATIENT: Yes Changes since office visit: No Cold of Flu in the past 2 weeks, No New Medical Problems, No Changes in Medication and No Patient answered all questions The History & Physical has been completed within 30 days and I have reviewed it.: Yes Section B Chief Complaint: Painless jaundice Allergies: Allergies Allergy/AdvReac Type Severity Reaction Status Date / Time No Known Allergies Allergy Verified 07/13/20 10:11 [No Known Allergies*] Plan I have reviewed the history and physical and performed a pertinent physical examination on my patient. No changes have occurred unless specified.
[2020-07-13] MEDS: Ampicillin Sodium/Sulbactam Na 3 GM in 0.9 % Sodium Chloride 100 ML IV (16:44)
--- NOTE | 2020-07-13 18:42 | PC.NURSE ---
Pt is resting quietly in bed in no distress. Pt denies any pain or discomfort. Pt reminded that he is NPO currently. Pt offered mouth swabs but declines at this time. Pt is alert and oriented.
--- NOTE | 2020-07-13 20:10 | PC.NURSE ---
PT TO MRI IN STRETCHER.
--- NOTE | 2020-07-13 20:15 | MHC.CM.PN ---
CM met with this mauricio man, who is alert and orientated x3. Pt given worrisome possible pancreatic CA diagnosis today. States he has fought cancer before and will do what he must. Is NPO for ERCT in am. Pt lives with and is very independent. Has no services or medical equipment in the home. Has 2 children who live in [place]. Daughter is a nurse and came to care for him when he had esophageal cancer. He expects she will help him again if needed. Pt is an [employer] and is vet connected. PCP is Dr. Isamar Wodos. Pt sees Dr. Roy for oncology. IMM reviewed and signed per protocol. HCP reviewed, completed and signed per protocol. HCP/ is Niki Bridges ([phone]). CM will follow for d/c needs.
--- NOTE | 2020-07-13 21:01 | CONS_ITS ---
DATE OF SERVICE: 07/13/2020 REFERRING PHYSICIAN: Cleveland Contreras MD REASON FOR CONSULTATION: Jaundice and pancreatic mass. HISTORY OF PRESENT ILLNESS: The patient is a pleasant 79-year-old man, well known to me from previous evaluation. He was admitted to the hospital after presenting with painless jaundice. He was seen earlier in the month with elevated liver function tests and imaging at that time with ultrasound showed cholelithiasis with impacted stones, but no wall thickening or tenderness. He was seen in consultation for surgery by General Surgery. He reports a loss of about 8 pounds over the past month due to anorexia. Associated with this, he has noted light-colored stools and darkening of his urine for the past 2 days previous to admission. He has no complaints of epigastric or back pain. Laboratory studies were obtained yesterday, which documented a total bilirubin of 12, alkaline phosphatase of 534, and transaminases in the [address] scanning was subsequently obtained, which appears to show about a 3 cm pancreatic head mass with dilation of both the common bile duct and pancreatic duct. PAST MEDICAL HISTORY: 1. 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 2. Malignant colon polyp resected 01/24/2000. 3. Abdominal aortic aneurysm. 4. Hypertension. 5. Gallstones. 6. Gout. 7. Hyperlipidemia. CURRENT MEDICATIONS: Current medication list is reviewed in the chart. ALLERGIES: THERE ARE NONE REPORTED. FAMILY HISTORY: This is reviewed with the patient and is noncontributory. SOCIAL HISTORY: There is no current tobacco, alcohol, or substance abuse. REVIEW OF SYSTEMS: SKIN: No pruritus. HEENT: Negative. CARDIOPULMONARY: He denies shortness of breath or chest pain. GASTROINTESTINAL: As above. GENITOURINARY: Negative. NEUROPSYCHIATRIC: Negative. PHYSICAL EXAMINATION: GENERAL: Shows a pleasant male, in no acute distress. Skin is tanned, but icterus is present. HEENT: Shows some scleral icterus. NECK: Without lymphadenopathy or thyromegaly. LUNGS: Clear. HEART: Shows a regular rate and rhythm. S1, S2. No murmur. ABDOMEN: Soft without focal masses or tenderness. Bowel sounds are present. No organomegaly is noted. EXTREMITIES: Without edema. LABORATORY DATA: Reviewed. CT scanning is reviewed and appears to show a 3 cm mass in the head of the pancreas with ductal dilation of both the pancreatic and biliary system. He does have a 4 cm abdominal aortic aneurysm, unchanged from his previous 2019 examination. IMPRESSION: Obstructive jaundice. His presentation is consistent with a mass in the head of the pancreas, likely adenocarcinoma causing biliary obstruction and painless jaundice. I have discussed the ERCP with stent placement with him. This will be arranged for tomorrow. He and his understand risks and benefits and agree to proceed. Thanks for asking me to see him. I will follow him in the hospital with you. MD LAUREN Romero/MATTHEW / [phone]
--- NOTE | 2020-07-13 21:16 | PC.NURSE ---
PT REMAINS IN MRI AT THIS TIME. REPORT GIVEN TO FLOOR AND PT CAN GO UP AT ANYTIME AFTER MRI.
[2020-07-13] MEDS: Phytonadione (Vit K1) 10 MG in 0.9 % Sodium Chloride 50 ML 51 MG IV (22:00)
[2020-07-13] MEDS: 0.9 % Sodium Chloride 1,000 ML 75 ML IVCONT (22:00)
[2020-07-13] MEDS: 0.9 % Sodium Chloride Flush 3 ML SYRINGE IVFLUSH (22:01)
[2020-07-13] MEDS: Metoprolol Tartrate 25 MG TABLET PO (22:01)
[2020-07-13] MEDS: Meclizine HCl 25 MG TABLET PO (22:16)
[2020-07-14] VITALS (13 sets, daily range): BP systolic 90–154; BP diastolic 50–78; PULSE 54–94; RESP 15–19; TEMP 35.8–36.6; O2SAT 94–99; BMI 22.9
[2020-07-14 06:26] LABS: MANUAL DIFF FLAG NO
[2020-07-14 06:44] LABS: INTERNATIONAL NORM RATIO 1.1 (0.9-1.1)
[2020-07-14 06:48] LABS: Basophils Absolute Auto 0.1 X10*3/uL (0.0-0.2); Eosinophils Absolute Auto 0.2 X10*3/uL (0.0-0.4); Eosinophils Percent Auto 4.4 % (0-4); Hematocrit 39.1 % (42-52); Hemoglobin 13.8 g/dl (14.0-18.0); Imm Gran Abs Auto 0.01 X10*3/uL (0.00-0.03); Imm Gran Pct Auto 0.2 % (0.0-0.4); Mean Corpuscular HGB Conc 35.3 g/dl (31.0-36.0); Mean Corpuscular Hemoglobin 30.5 pg (27.0-33.0); Mean Corpuscular Volume 86.5 fL (80-98); Mean Platelet Volume 10.9 fL (9.4-12.4); Monocytes Absolute Auto 0.6 X10*3/uL (0.1-1.2); Monocytes Percent Auto 12.3 % (2-11); Neutrophils Absolute Auto 3.2 X10*3/uL (2.0-8.3); Neutrophils Percent Auto 63.1 % (45-73); Platelet Count 156 X10*3/uL (160-400); Red Blood Count 4.52 X10*6/uL (4.60-5.80); Red Cell Distribution Width 18.7 % (11.0-16.0)
[2020-07-14 07:28] LABS: Alanine Aminotransferase 91 U/L (0-40); Albumin Level 3.1 g/dL (3.5-5.0); Alkaline Phosphatase 472 U/L (39-117); Aspartate Amino Transferase 118 U/L (5-37); Bilirubin Total 13.9 mg/dL (0.0-1.0); Total Protein 5.4 g/dL (6.5-8.0)
[2020-07-14] MEDS: 0.9 % Sodium Chloride Flush 3 ML SYRINGE IVFLUSH ×3 (07:35→23:56)
[2020-07-14] MEDS: Metoprolol Tartrate 25 MG TABLET PO ×2 (07:37→20:04)
[2020-07-14 07:54] LABS: Anion Gap 15 (12-20); Blood Urea Nitrogen 13 mg/dL (9-16); Calcium 8.8 mg/dL (8.4-10.2); Carbon Dioxide 24 mmol/L (22-29); Chloride 110 mmol/L (96-108); Estimated Glomerular Filt Rate > 60; Glucose Random 106 mg/dL (60-115); Potassium 4.5 mmol/L (3.3-5.1); Sodium 144 mmol/L (135-145)
--- NOTE | 2020-07-14 09:29 | P.PNIM_ITS ---
Subjective Subjective Date of Service: 07/14/20 Interval History: no complaints Cardiovascular Cardiovascular: Reports no additional cardiovascular complaints Respiratory Respiratory: Reports no additional respiratory complaints Physical Exam Vital Signs: Vital Signs: Last Vital Signs Temp 97.5 F 07/14/20 07:35 Pulse 94 07/14/20 07:35 Resp 18 07/14/20 07:35 BP 125/76 07/14/20 07:35 Pulse Ox 94 07/14/20 07:35 Body Mass Index 22.9 General: AO X 3, no acute distress, jaundiced Resp: CTA bilateral CVS: S1,S2,RRR GI: soft, non tender, non distended Neuro: motor grossly intact Psych: appropriate affect Objective Data Current Medications Generic Name Dose Route Start Last Admin Trade Name Freq PRN Reason Stop Dose Admin Allopurinol 100 mg 07/14/20 09:00 07/14/20 07:36 Allopurinol 100 Mg Tablet PO Not Given DAILY JACLYN Sodium Chloride 1,000 mls @ 75 mls/hr 07/13/20 21:34 07/13/20 23:13 Ns IVCONT 75 mls/hr .[id number] JACLYN Infusion Meclizine HCl 25 mg 07/13/20 21:34 07/14/20 07:37 Meclizine Hcl 25 Mg Tablet PO Not Given BID JACLYN Metoprolol Tartrate 25 mg 07/13/20 21:34 07/14/20 07:37 Metoprolol Tartrate 25 Mg Tablet PO 25 mg BID [facility] Administration Protocol Omeprazole 10 mg 07/14/20 06:30 07/14/20 06:05 Omeprazole 20 Mg/10 Ml Susp.Recon PO 10 mg BID@0630,1630 [facility] Administration Pharmacy Consult 1 each 07/13/20 13:50 Consult Rx Perform Med Rec MISCELLANE ONCE PRN Consult order Sodium Chloride 3 ml 07/13/20 21:34 07/14/20 07:35 0.9 % Sodium Chloride Flush 3 Ml Syringe IVFLUSH 3 ml QSHIFT [facility] Administration Labs CBC & Chem 7: 07/14/20 06:08 07/14/20 06:08 Assessment and Plan (1) Abnormal LFTs: Status: Acute Assessment and Plan: 79M presented with painless jaundice, concern for pancreatic neoplasm obstructive jaundice plan for ERCP/stent today follow up ca 19-9 follow up oncology monitor lfts holding statin HTN lopressor gout allopurinol
--- NOTE | 2020-07-14 10:04 | P.CONAN_ITS ---
[facility] Active Problems Active Problems: All Active Problems (Updated 07/13/20 @ 14:01 by Chan Diaz MD) Pancreatic adenocarcinoma (Acute) Malignant obstructive jaundice (Acute) Abnormal LFTs (Acute) Gallstones (Acute) Cholelithiasis (Acute) Achilles tendinitis, left leg (Acute) Mixed dyslipidemia (Acute) Abdominal aortic aneurysm without rupture (Acute) Adenocarcinoma of gastroesophageal junction (Acute) Essential hypertension (Acute) Gout (Acute) Past Medical History Medical History Abdominal aortic aneurysm without rupture Abnormal LFTs Achilles tendinitis, left leg Adenocarcinoma of gastroesophageal junction Anemia Cholelithiasis Essential hypertension Gallstones Gout Hx of iron deficiency anemia Mixed dyslipidemia Family History Family History Father No problems noted. Mother No problems noted. Surgical History Surgical History Hx of esophagectomy Social History Social History Household Members: Significant Other Housing: House Do you presently have visiting nurse or other home services: No Alcohol intake: never Patient Tobacco Use Status: Former Tobacco user Quit Date: greater than 30 years ago Tobacco use type: Cigarette Smoked in Last 30 Days: No Use of substances other than those prescribed or required for medical reasons: No Currently Displaying Signs/Symptoms of Drug Intoxication Withdrawal: No Have you been hit, kicked, punched, or otherwise hurt by someone within the past year? If so, by whom?: No Do you feel safe in your current relationship?: Yes Is there a partner from a previous relationship who is making you feel unsafe now?: No Are you made to feel afraid or neglected: No Are you DNR?: No Advance Directives: Yes Advance Directives Information Provided: Yes Advance Directives on File: No Advance Directives Date on File: 07/13/20 Do you have thoughts of harming others: None Do you have a plan to hurt others: No Plan Recently lost weight without trying: Yes How much weight loss: 2-13 pounds Eating poorly because of decreased appetite: Yes Nutrition screen score: 4 Nutrition Risks: Poor intake 0-25% >4 days Poor oral hygiene: No service: Yes Current occupational status: retired Meds Allergies Allergy/AdvReac Type Severity Reaction Status Date / Time No Known Allergies Allergy Verified 07/13/20 10:11 [No Known Allergies*] Active Medications: Current Medications Generic Name Dose Route Start Last Admin Trade Name Jeb PRN Reason Stop Dose Admin Allopurinol 100 mg 07/14/20 09:00 07/14/20 07:36 Allopurinol 100 Mg Tablet PO Not Given DAILY [facility] Sodium Chloride 1,000 mls @ 75 mls/hr 07/13/20 21:34 07/13/20 23:13 Ns IVCONT 75 mls/hr .[id number] [facility] Infusion Ampicillin Sodium/Sulbactam 100 mls @ 200 mls/hr 07/14/20 09:55 Sodium 3 gm/ Sodium Chloride IV 07/14/20 10:24 ONCE ONE Meclizine HCl 25 mg 07/13/20 21:34 07/14/20 07:37 Meclizine Hcl 25 Mg Tablet PO Not Given BID [facility] Metoprolol Tartrate 25 mg 07/13/20 21:34 07/14/20 07:37 Metoprolol Tartrate 25 Mg Tablet PO 25 mg BID [facility] Administration Protocol Omeprazole 10 mg 07/14/20 06:30 07/14/20 06:05 Omeprazole 20 Mg/10 Ml Susp.Recon PO 10 mg BID@0630,1630 [facility] Administration Pharmacy Consult 1 each 07/13/20 13:50 Consult Rx Perform Med Rec MISCELLANE ONCE PRN Consult order Sodium Chloride 3 ml 07/13/20 21:34 07/14/20 07:35 0.9 % Sodium Chloride Flush 3 Ml Syringe IVFLUSH 3 ml QSHIFT [facility] Administration Home Medications Medication Instructions Recorded Confirmed Last Taken Type meclizine 25 mg tablet 25 mg PO BID 02/04/20 07/13/20 07/13/20 History metoprolol tartrate 25 mg tablet 25 mg PO BID 02/04/20 07/13/20 07/13/20 History omeprazole 10 mg capsule,delayed 10 mg PO BID cap 02/04/20 07/13/20 07/13/20 History release simvastatin 40 mg tablet 40 mg PO BEDTIME 02/04/20 07/13/20 07/12/20 History allopurinol 100 mg PO DAILY 07/13/20 07/13/20 07/13/20 History ifiqosdc-zmo-DP-lycopen-lutein 1 tab PO DAILY 07/13/20 07/13/20 07/13/20 History [Centrum Silver Men] sucralfate 5 ml PO DAILY PRN 07/13/20 07/13/20 Unknown History Exam Exam Date and Time: July 14, 2020 1004 Height,Weight and Vital Signs: Height 5 ft 10 in Weight 72.575 kg Last Vital Signs Temp 97.0 F 07/14/20 09:39 Pulse 58 07/14/20 09:39 Resp 18 07/14/20 09:39 BP 146/78 H 07/14/20 09:39 Pulse Ox 98 07/14/20 09:39 Pertinent Lab Results Pertinent Lab Results: Laboratory Tests 07/13/20 07/14/20 07/14/20 14:04 06:08 06:08 WBC 5.0 RBC 4.52 L Hgb 13.8 L Hct 39.1 L MCV 86.5 MCH 30.5 MCHC 35.3 RDW 18.7 H Plt Count 156 L MPV 10.9 Immature Gran % (Auto) 0.2 Neut % (Auto) 63.1 Lymph % (Auto) 19.0 L [place] % (Auto) 12.3 H Eos % (Auto) 4.4 H Baso % (Auto) 1.0 Lymph # (Auto) 1.0 L [place] # (Auto) 0.6 Eos # (Auto) 0.2 Baso # (Auto) 0.1 Abs Immat Gran (auto) 0.01 Absolute Neuts (auto) 3.2 Absolute Nucleated RBC 0.000 Nucleated RBC % (auto) 0.0 PT 13.0 INR 1.1 Sodium Potassium Chloride Carbon Dioxide Anion Gap BUN Creatinine Estim Creat Clear Calc Estimated GFR Random Glucose Calcium Total Bilirubin Direct Bilirubin AST ALT Alkaline Phosphatase Total Protein Albumin COVID-19 (AIDE) Negative COVID-19 Clin Com See Note 07/14/20 06:08 WBC RBC Hgb Hct MCV MCH MCHC RDW Plt Count MPV Immature Gran % (Auto) Neut % (Auto) Lymph % (Auto) [place] % (Auto) Eos % (Auto) Baso % (Auto) Lymph # (Auto) [place] # (Auto) Eos # (Auto) Baso # (Auto) Abs Immat Gran (auto) Absolute Neuts (auto) Absolute Nucleated RBC Nucleated RBC % (auto) PT INR Sodium 144 Potassium 4.5 Chloride 110 H Carbon Dioxide 24 Anion Gap 15 BUN 13 Creatinine 0.90 Estim Creat Clear Calc 66.0 Estimated GFR > 60 Random Glucose 106 Calcium 8.8 Total Bilirubin 13.9 H Direct Bilirubin 10.0 H AST 118 H ALT 91 H Alkaline Phosphatase 472 H Total Protein 5.4 L Albumin 3.1 L COVID-19 (AIDE) COVID-19 Clin Com Airway Mallampati Class: II TM Dist: >3cm Neck ROM: Full Loose/Missing/Broken Teeth: No Heart: RRR Lungs: CTA Assessment and Plan Assessment Anesthesia Assessment: Anesthesia Plan Discussed and Chart Reviewed Final Anesthetic Review NPO: Yes ASA Class: III Final Preanesthetic Review: Meds/Allgs Chart Reviewed, Consent Obtained/Reviewed and Anes Risks/Benef Reviewed Patient Risk: Intermediate Procedure Risk: Intermediate Anesthetic Plan Anesthetic Plan: GA Disposition: Standard PACU
[2020-07-14] MEDS: Ampicillin Sodium/Sulbactam Na 3 GM in 0.9 % Sodium Chloride 100 ML IV (10:17)
[2020-07-14] MEDS: Lactated Ringers 1,000 ML 50 ML IV (10:17)
--- NOTE | 2020-07-14 11:31 | MHC.CM.PN ---
PATIENT TO RECEIVE STENT TODAY. PLAN IS FOR DISCHARGE HOME TOMORROW (07/15/20)
--- NOTE | 2020-07-14 11:57 | PM.OP ---
Brief Operative Note Date of Service: 07/14/20 Pre-op diagnosis: pancreatic mass with jaundice Post-op diagnosis: same Procedure: ERCP Surgeon: Obi Ayala Anesthesia: GETA Was an Repeater Operator used for this Procedure?: No Estimated blood loss (mL): 0 Pathology: other (cytology brushings of biliary stricture) Condition: stable Disposition: PACU
--- NOTE | 2020-07-14 11:58 | PM.EVENT ---
Event Note Date of Service: 07/14/20 Event Note: GI ERCP dictated distal 1.5 cm stricture with dilation of cbd and cystic duct. sphincterotomy to 8mm with no complications cytology brushings obtained from stricture 10F 5 cm straight biliary stent placed with good drainage of dark bile. advance diet, can d/c later today if stable.
--- NOTE | 2020-07-14 13:13 | OP_ITS ---
SURGEON: Obi Ayala MD INDICATIONS: Pancreatic mass with jaundice. PREOPERATIVE DIAGNOSIS: POSTOPERATIVE DIAGNOSIS: PROCEDURE PERFORMED: ERCP with sphincterotomy, stent placement and cytology brushings. ESTIMATED BLOOD LOSS: COMPLICATIONS: ANESTHESIA: ASSISTANTS: SPECIMENS: MEDICATIONS: Monitored anesthesia care. DESCRIPTION OF PROCEDURE: History and physical performed. The risks and benefits of the procedure were explained to the patient. Informed consent was obtained. The patient was placed in the prone position with a wedge under the right shoulder. The Olympus therapeutic duodenoscope was introduced into the esophagus, stomach, and duodenum. Examination was performed and the scope was removed. He tolerated the procedure well and was taken to recovery area in stable condition. FINDINGS: ENDOSCOPY: Limited examination of the esophagus, stomach, and duodenum were within normal limits. Surgical changes in the distal esophagus consistent with his previous esophagectomy were noted. The major papilla appeared normal. The common bile duct was cannulated with a guidewire and sphincterotome after observing a normal-appearing major papilla. Cholangiography showed a distal 1.5 cm stricture with upstream dilation of the common bile duct and cystic duct. A sphincterotomy was performed to approximately 8 mm with no immediate complications and cytology brushings of the biliary stricture were then obtained. Next, a 10-Dominican 5 cm plastic biliary stent was inserted in good position with excellent drainage of dark black bile. No pancreatogram was attempted or obtained. IMPRESSION: Pancreatic mass with biliary obstruction, status post cytology brushing and stent placement. RECOMMENDATIONS: 1. Follow up the brushing results. 2. Referral for a surgical oncological consultation. MD LAUREN Romero/MODL / [id number]
--- NOTE | 2020-07-14 14:11 | P.CNHO_ITS ---
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 He presents with jaundilce and weight loss and bile duct obstruction at the level of lthe pancreas. His pancreas was unremarkable on staging and restaging studies recently. Review of Systems - Eyes Reports other - Cardiovascular Reports foot swelling - Respiratory Reports dyspnea on exertion - Gastrointestinal Reports change in stools - Genitourinary Genitourinary: Reports urinary hesitancy - Musculoskeletal Reports decreased muscle mass - Integumentary/Breasts Skin/Breast: Reports yellowing of the skin - Neurologic Reports system reviewed and no additional complaints, except as documented, Denies sensory deficit Oncology Screenings - ECOG Performance Status ECOG Performance Status: 3 - G8 Geriatric Assessment Change in food intake over past 3 months: Severe decrease in food intake Weight loss during the last 3 months: Weight loss > 3 kg Mobility: Able to get out of bed/chair, but does not go out Neuropsychological problems: No psychological problems Body Mass Index: 21 to 22 Patient takes > 3 prescription drugs per day: Yes Patient's assessment of health status compared to others: Not as good Patient age: < 80 G8 Score: 7 G8 Risk Level: High risk for early functional decline and reduced survival. [facility] Medical History: Medical History (Last Reviewed 07/14/20 @ 10:22 by Nena Cantu) Abdominal aortic aneurysm without rupture Abnormal LFTs Achilles tendinitis, left leg Adenocarcinoma of gastroesophageal junction Anemia Cholelithiasis Essential hypertension Gallstones Gout Hx of iron deficiency anemia Mixed dyslipidemia Family History: Family History (Last Reviewed 07/14/20 @ 10:22 by Nena Cantu) Father No problems noted. Mother No problems noted. Family history: reviewed and not pertinent Surgical History: Surgical History (Last Reviewed 07/14/20 @ 10:22 by Nena Cantu) Hx of esophagectomy Social History: Social History (Last Reviewed 07/14/20 @ 10:22 by Nena Cantu) Living Situation History: Household Members: Significant Other Housing: House Do you presently have visiting nurse or other home services: No Alcohol History: Alcohol intake: never Alcohol History Details: Alcohol intake frequency: holiday/special occasion Tobacco History: Patient Tobacco Use Status: Former Tobacco user Tobacco use type: Cigarette Smoked in Last 30 Days: No Smoke Quit Date: greater than 30 years ago Substance Use History: Use of substances other than those prescribed or required for medical reasons : No Currently Displaying Signs/Symptoms of Drug Intoxication Withdrawal: No Domestic Abuse History: Have you been hit, kicked, punched, or otherwise hurt by someone within the past year? If so, by whom?: No Do you feel safe in your current relationship?: Yes Is there a partner from a previous relationship who is making you feel unsafe now?: No Are you made to feel afraid or neglected: No Advance Directives: Are you DNR?: No Advance Directives: Yes Advance Directives Information Provided: Yes Advance Directives on File: No Advance Directives Date on File: 07/13/20 Homicidal Assessment: Do you have thoughts of harming others: None Do you have a plan to hurt others: No Plan Nutrition Assessment: Recently lost weight without trying: Yes How much weight loss: 2-13 pounds Eating poorly because of decreased appetite: Yes Nutrition screen score: 4 Nutrition Risks: Poor intake 0-25% >4 days Poor oral hygiene: No Occupation Assessmet: service: Yes Current occupational status: retired Home Medications and Allergies Current Medications: Current Medications Generic Name Dose Route Start Last Admin Trade Name Freq PRN Reason Stop Dose Admin Acetaminophen 650 mg 07/14/20 10:24 Acetaminophen 325 Mg Tablet PO ONCE PRN Pain, Mild (Pain Scale 1-3) Albuterol Sulfate 2.5 mg 07/14/20 10:24 Albuterol Sulfate (0.083%) 2.5 Mg/3 Ml Vial.Neb INHALE ONCE PRN Wheezing Allopurinol 100 mg 07/14/20 09:00 07/14/20 07:36 Allopurinol 100 Mg Tablet PO Not Given DAILY JACLYN Fentanyl 25 mcg 07/14/20 10:24 Fentanyl Citrate/Pf 100 Mcg/2 Ml Vial IVPUSH Q5M PRN Pain, Moderate (Pain Scale 4-6 Sodium Chloride 1,000 mls @ 75 mls/hr 07/13/20 21:34 07/14/20 12:54 Ns IVCONT Not Given .[id number] JACLYN Lactated Ringer's 1,000 mls @ 50 mls/hr 07/14/20 10:15 07/14/20 12:52 Lr IV 50 mls/hr .Q20H JACLYN Infusion Meclizine HCl 25 mg 07/13/20 21:34 07/14/20 07:37 Meclizine Hcl 25 Mg Tablet PO Not Given BID [facility] Metoprolol Tartrate 25 mg 07/13/20 21:34 07/14/20 07:37 Metoprolol Tartrate 25 Mg Tablet PO 25 mg BID JACLYN Administration Protocol Omeprazole 10 mg 07/14/20 06:30 07/14/20 06:05 Omeprazole 20 Mg/10 Ml Susp.Recon PO 10 mg BID@0630,1630 [facility] Administration Oxycodone HCl 5 mg 07/14/20 10:24 Oxycodone Hcl Immed Release 5 Mg Tablet PO ONCE PRN Pain, Severe (Pain Scale 7-10) Pharmacy Consult 1 each 07/13/20 13:50 Consult Rx Perform Med Rec MISCELLANE ONCE PRN Consult order Sodium Chloride 3 ml 07/13/20 21:34 07/14/20 07:35 0.9 % Sodium Chloride Flush 3 Ml Syringe IVFLUSH 3 ml QSHIFT [facility] Administration Home Medications Medication Instructions Recorded Confirmed Type meclizine 25 mg tablet 25 mg PO BID 02/04/20 07/13/20 History metoprolol tartrate 25 mg tablet 25 mg PO BID 02/04/20 07/13/20 History omeprazole 10 mg capsule,delayed 10 mg PO BID cap 02/04/20 07/13/20 History release simvastatin 40 mg tablet 40 mg PO BEDTIME 02/04/20 07/13/20 History allopurinol 100 mg PO DAILY 07/13/20 07/13/20 History uzhzlxew-yxz-JQ-lycopen-lutein 1 tab PO DAILY 07/13/20 07/13/20 History [Centrum Silver Men] sucralfate 5 ml PO DAILY PRN 07/13/20 07/13/20 History Allergies Allergy/AdvReac Type Severity Reaction Status Date / Time No Known Allergies Allergy Verified 07/13/20 10:11 [No Known Allergies*] Physical Exam Vital signs: Vital Signs Temp 96.5 F L 07/14/20 12:50 Pulse 57 07/14/20 12:50 Resp 18 07/14/20 12:50 BP 135/71 07/14/20 12:50 Pulse Ox 99 07/14/20 12:50 Intake & Output 07/13/20 07/14/20 07/14/20 18:59 06:59 18:59 Intake Total 100 / 301 201 / 301 1139.167 / 1139.167 Output Total 100 / 100 Balance 100 / 201 101 / 201 1139.167 / 1139.167 Urine Output (Average ml/kg/hr) 0.11 0.11 Intake: Intake, Oral Amount 120 / 120 240 / 240 Intake, IV Amount 100 / 181 81 / 181 899.167 / 899.167 Ampicillin Sodium/Sulbactam Na 100 / 100 100 / 100 3 gm In 0.9 % Sodium Chloride 100 ml @ 200 mls/hr IV ONCE ONE Rx#:[id number] Lactated Ringers 1,000 ml @ 50 129.167 / 129.167 mls/hr IV .Q20H [facility] Rx#: [id number] Phytonadione (Vit K1) 10 mg In 51 / 51 0.9 % Sodium Chloride 50 ml @ 51 mls/hr IV ONCE ONE Rx#: [id number] 0.9 % Sodium Chloride 1,000 ml 30 / 30 670 / 670 @ 75 mls/hr IVCONT .[id number] [facility] Rx#:[id number] Output: Output, Urine Amount 100 / 100 Other: NPO Yes Dinner % Eaten 50% Weight 72.575 kg Weight 72.575 kg - Constitutional Present: no acute distress - Routine HEENT Exam Head: Present: atraumatic Eye: Present: scleral icterus - Routine Cardiovascular Exam Cardiovascular: Present: RRR - Routine Abdominal Exam Present: diminished bowel sounds - Routine Rectal Exam Patient deferred: visual exam - Routine Extremities Exam Present: nontender - Routine Skin Exam Present: jaundice Hem/Onc Consult Result - Labs CBC & Chem 7: 07/14/20 06:08 07/14/20 06:08 Labs: Short CBC 07/14/20 Range/Units 06:08 WBC 5.0 (4.8-10.8) X10*3/uL Hgb 13.8 L (14.0-18.0) g/dl Hct 39.1 L (42-52) % Plt Count 156 L (160-400) X10*3/uL BMP 07/14/20 06:08 Sodium 144 Potassium 4.5 Chloride 110 H Carbon Dioxide 24 BUN 13 Creatinine 0.90 Calcium 8.8 Liver Function 07/14/20 Range/Units 06:08 Total Bilirubin 13.9 H (0.0-1.0) mg/dL Direct Bilirubin 10.0 H (0.0-0.5) mg/dL AST 118 H (5-37) U/L ALT 91 H (0-40) U/L Alkaline Phosphatase 472 H (39-117) U/L Albumin 3.1 L (3.5-5.0) g/dL Assessment and Plan (1) Malignant obstructive jaundice Start date: 07/14/20 Status: Acute He has undergon the ERCP. Joseluisidparags results pending. Will follow daily.
[2020-07-14] MEDS: Meclizine HCl 25 MG TABLET PO (20:04)
[2020-07-15 03:30] VITALS: BP 109/60; PULSE 62; RESP 15; TEMP 36.5; O2SAT 98
[2020-07-15 07:26] VITALS: BP 158/74; PULSE 57; RESP 18; TEMP 36.8; O2SAT 99
[2020-07-15 08:21] VITALS: BP 158/74; PULSE 61
[2020-07-15] MEDS: Metoprolol Tartrate 25 MG TABLET PO (08:21)
[2020-07-15] MEDS: 0.9 % Sodium Chloride Flush 3 ML SYRINGE IVFLUSH (08:22)
[2020-07-15] MEDS: allopurinoL 100 MG TABLET PO (08:22)
[2020-07-15] MEDS: Meclizine HCl 25 MG TABLET PO (08:22)
[2020-07-15 08:34] LABS: Alanine Aminotransferase 82 U/L (0-40); Alkaline Phosphatase 426 U/L (39-117); Anion Gap 13 (12-20); Aspartate Amino Transferase 97 U/L (5-37); Bilirubin Direct 5.7 mg/dL (0.0-0.5); Blood Urea Nitrogen 16 mg/dL (9-16); Calcium 8.8 mg/dL (8.4-10.2); Carbon Dioxide 24 mmol/L (22-29); Chloride 109 mmol/L (96-108); Creatinine Clr Calc Pharmacy 61.3; Estimated Glomerular Filt Rate > 60; Glucose Fasting 116 mg/dL (60-99); Potassium 4.1 mmol/L (3.3-5.1); Sodium 142 mmol/L (135-145); Total Protein 5.3 g/dL (6.5-8.0)
--- NOTE | 2020-07-15 09:21 | PM.DS ---
DS: Providers Provider Date of Service: 07/15/20 Date of admission: 07/13/20 14:39 Primary care physician: Frank Roy MD Consults: 07/13/20 21:34 Consult to Gastroenterology Routine Consulting Provider: Frank Lakhani Reason for consultation: cbd obstruction Consult to Hematology / Oncology Routine Consulting Provider: Frakn Roy Reason for consultation: painless juandice DS: Diagnosis Discharge Diagnosis (1) Malignant obstructive jaundice: Status: Acute DS: Medications Discharge Medications Home Medications: Home Medications Medication Instructions Recorded Confirmed meclizine 25 mg tablet 25 mg PO BID 02/04/20 07/13/20 metoprolol tartrate 25 mg tablet 25 mg PO BID 02/04/20 07/13/20 omeprazole 10 mg capsule,delayed 10 mg PO BID cap 02/04/20 07/13/20 release simvastatin 40 mg tablet 40 mg PO BEDTIME 02/04/20 07/13/20 Centrum Silver Men 1 tab PO DAILY 07/13/20 07/13/20 allopurinol 100 mg PO DAILY 07/13/20 07/13/20 sucralfate 5 ml PO DAILY PRN 07/13/20 07/13/20 DS: Summary Hospital Course Hospital Course: patient was admitted for obstructive jaundice due to suspected pancreatic mass, he underwent ERCP with stent placement and bilirubin is improving. Brushings were taken, CA 19-9 is pending. Patient is feeling well and will be discharged home. He will follow up closely with Oncology for further workup and results of pending tests. Time Spent with Patient Time attestation: Total time spent providing and/or coordinating discharge services: Discharge coordination time: Greater than 30 minutes Quality: Stroke Does the patient have a stroke diagnosis?: No Physical Exam Vital Signs: Vital Signs: Last Vital Signs Temp 98.3 F 07/15/20 07:26 Pulse 61 07/15/20 08:21 Resp 18 07/15/20 07:26 BP 158/74 H 07/15/20 08:21 Pulse Ox 99 07/15/20 07:26 Body Mass Index 22.9 General: AO X 3, no acute distress, jaundiced Resp: CTA bilateral CVS: S1,S2,RRR GI: soft, non tender, non distended Neuro: motor grossly intact Psych: appropriate affect DS: Data Data Completed and Pending Pending studies at discharge: Pending at discharge 07/14/20 11:33 Cytology [PTH] Routine Labs on day of discharge: Laboratory Results - last 24 hr 07/15/20 07:52 Sodium 142 Potassium 4.1 Chloride 109 H Carbon Dioxide 24 Anion Gap 13 BUN 16 Creatinine 0.97 Estim Creat Clear Calc 61.3 Estimated GFR > 60 Fasting Glucose 116 H Calcium 8.8 Total Bilirubin 8.0 H Direct Bilirubin 5.7 H AST 97 H ALT 82 H Alkaline Phosphatase 426 H Total Protein 5.3 L Albumin 3.0 L Discharge Plan Discharge Patient Disposition: Home, Self-Care Discharge Diagnosis: obstructive jaundice Referrals: Frank Roy MD [Primary Care Provider] - 1 Week Discharge Medications: Continued allopurinol 100 mg tablet 100 mg PO DAILY RF: 0 Centrum Silver Men 300-600-300 mcg Tablet 1 tab PO DAILY RF: 0 sucralfate 100 mg/mL Suspension 5 ml PO DAILY PRN (Reason: GI) RF: 0 omeprazole 10 mg capsule,delayed release(DR/EC) 10 mg PO BID RF: 0 meclizine 25 mg tablet 25 mg PO BID RF: 0 metoprolol tartrate 25 mg tablet 25 mg PO BID RF: 0 simvastatin 40 mg tablet 40 mg PO BEDTIME RF: 0 Discharge Orders: Discharge Order (Routine); Ordered 07/15/20 Ordered By: Cleveland Contreras Diet: advance to usual diet Activity on Discharge: As tolerated Stand Alone Forms: Patient Portal Discharge page Care Plan Goals: work up obstructive jaundice Health Concerns: obstructive jaundice Plan of Treatment: follow up with oncology for results of brushing, ca19-9, further work up Assessment: see above Discharge Date/Time: 07/15/20 10:30
[2020-07-15] MEDS: polyethylene glycoL 3350 17 GM POWD.PACK PO (09:49)
--- NOTE | 2020-07-15 10:19 | MHC.CM.PN ---
PT WILL DC HOME TODAY WITH NO SERVICES. FAMILY TO TRANSPORT
--- NOTE | 2020-07-15 10:23 | HO.POSTANES ---
Post Anesthesia Evaluation Post Anesthesia Evaluation Vital Signs: Vital Signs Temp Pulse Resp BP Pulse Ox 07/15/20 08:21 61 158/74 H 07/15/20 07:26 98.3 F 57 18 158/74 H 99 07/15/20 03:30 97.7 F 62 15 109/60 98 07/14/20 23:58 97.6 F 57 15 90/50 L 96 Anesthesia: General Endotracheal-GETA Mental Status: Awake Pain Control: Satisfactory Nausea/Vomiting: None Hydration: Adequate Anesthesia-Related Issues: No Anes. Related Issues
[2020-07-18 10:26] LABS: Carbohydrate Antigen 19-9 10872 U/mL (<34)
== END 2020-07-15 10:30 | disposition home or self-care (01) | DRG 445 ==
LOC: HO.ED 14:01 → HO.EDOVER 15:22 → HO.S3 18:40
PROVIDERS: Internal Medicine Gastroenterology; Admitting Provider Internal Medicine; Emergency Provider Emergency Medicine; PCP Internal Medicine Medical Oncology; Visit Provider Internal Medicine
PROC: 0F798DZ Dilation of Common Bile Duct with Intraluminal Device, Via Natural or Artificial Opening Endoscopic (ICD-10-PCS; CPT 43260; principal; 2020-07-14 09:50)
DX: K83.1 Obstruction of bile duct (principal); C78.89 Secondary malignant neoplasm of other digestive organs; M10.9 Gout, unspecified; E78.2 Mixed hyperlipidemia; Z85.01 Personal history of malignant neoplasm of esophagus; Z20.822 Contact with and (suspected) exposure to COVID-19; Z87.891 Personal history of nicotine dependence; Z79.899 Other long term (current) drug therapy
CPT/HCPCS: 36415; 74177; 74183; 80048; 80053; 80076; 82378; 82977; 85025; 85610; 86301; 86704; 86706; 86709; 86803; 87340; 87635; 88112; 99285; A9585; C1769; C2617; J0295; J1100; J1610; J2405; J3010; J3430; Q9967

== ENCOUNTER 2020-07-22 09:14 | Outpatient (REF) | payer MEDICARE, SELFPAY ==
[2020-07-22 12:20] LABS: Basophils Percent Auto 0.5 % (0-2); Eosinophils Absolute Auto 0.1 X10*3/uL (0.0-0.4); Eosinophils Percent Auto 1.3 % (0-4); Hematocrit 42.8 % (42-52); Hemoglobin 14.5 g/dl (14.0-18.0); Imm Gran Abs Auto 0.03 X10*3/uL (0.00-0.03); Imm Gran Pct Auto 0.4 % (0.0-0.4); Lymphocytes Absolute Auto 2.5 X10*3/uL (1.2-4.9); Lymphocytes Percent Auto 29.7 % (20-40); MANUAL DIFF FLAG SCAN; Mean Corpuscular HGB Conc 33.9 g/dl (31.0-36.0); Mean Corpuscular Volume 91.6 fL (80-98); Monocytes Absolute Auto 1.1 X10*3/uL (0.1-1.2); Monocytes Percent Auto 13.3 % (2-11); Neutrophils Absolute Auto 4.6 X10*3/uL (2.0-8.3); Neutrophils Percent Auto 54.8 % (45-73); Platelet Count 179 X10*3/uL (160-400); Red Blood Count 4.67 X10*6/uL (4.60-5.80); Red Cell Distribution Width 17.5 % (11.0-16.0); SCAN SMEAR FLAG 1; White Blood Count 8.4 X10*3/uL (4.8-10.8)
[2020-07-22 12:51] LABS: SLIDE REVIEW VERIFIED
[2020-07-22 13:36] LABS: Alanine Aminotransferase 40 U/L (0-40); Alkaline Phosphatase 264 U/L (39-117); Amylase 16 U/L (28-100); Anion Gap 16 (12-20); Aspartate Amino Transferase 50 U/L (5-37); Bilirubin Direct 2.5 mg/dL (0.0-0.5); Bilirubin Total 3.3 mg/dL (0.0-1.0); Blood Urea Nitrogen 23 mg/dL (9-16); Calcium 8.9 mg/dL (8.4-10.2); Carbon Dioxide 23 mmol/L (22-29); Chloride 107 mmol/L (96-108); Estimated Glomerular Filt Rate > 60; Glucose Random 124 mg/dL (60-115); Lipase < 4 U/L (8-78); Potassium 4.2 mmol/L (3.3-5.1); Sodium 142 mmol/L (135-145); Total Protein 5.7 g/dL (6.5-8.0)
[2020-07-26 12:43] LABS: Carbohydrate Antigen 19-9 11650 U/mL (<34)
== END 2020-07-22 09:15 | disposition home or self-care (01) ==
LOC: HO.HMGCLDS 09:14
PROVIDERS: PCP Internal Medicine; Visit Provider Internal Medicine Medical Oncology
DX: C16.0 Malignant neoplasm of cardia (principal); D49.0 Neoplasm of unspecified behavior of digestive system
CPT/HCPCS: 36415; 80053; 82150; 82248; 82378; 83690; 85025; 86301

== ENCOUNTER 2020-08-26 12:54 | Emergency (ER) | payer OTHER, SELFPAY ==
--- NOTE | ~2020-08-26 | CT_ITS ---
EXAMINATION: CT abdomen pelvis w con CLINICAL INFORMATION: Reason for Exam AP, poor appetite, nausea, recent dx pancreatic mass COMPARISON: Recent CT scan from 07/13/2020 MRI same day TECHNIQUE: Multidetector volumetric imaging was performed from the superior aspect of the liver through the pubic symphysis 100 mL of Omnipaque 300 injected Sagittal and coronal reformatted images were obtained on the technologist's workstation. This CT examination was performed using dose optimization techniques as appropriate, variously including the following: *Automated exposure control *Adjustment of mA and/or kV according to patient size (this includes techniques or standardized protocols for targeted exams where dose is matched to indication/reason for exam; i.e. extremities or head) *Use of iterative reconstruction technique DLP: 421 mGy-cm FINDINGS: LOWER THORAX: Included lung bases are clear. HEPATOBILIARY: Redemonstration of mild intra and extrahepatic biliary dilatation there is a stent in the bile duct. There are scattered small liver cysts unchanged. GALLBLADDER: There are multiple gallstones. SPLEEN: Spleen is normal in size. PANCREAS: Redemonstration of heterogeneous solid and cystic mass of the head of the pancreas measures about 64.2 x 4.6 cm abutting and slightly displacing the mesenteric vessels, posteriorly abutting the aorta and IVC, slightly more prominent on today's exam, there is now peripancreatic fat haziness raising the possibility of superimposed pancreatitis. Redemonstration of mild dilatation of the pancreatic duct probably sequela of prior obstruction of the pancreatic mass. The body and tail of the pancreas is small atrophic. STOMACH AND GASTROINTESTINAL TRACT: Stomach is grossly unremarkable. There is no bowel distention or thickening. No CT evidence of appendicitis. ADRENALS: No adrenal nodules. KIDNEYS/URETERS: There are multiple bilateral renal cysts the largest upper pole right kidney measure up to 6.2 cm, the largest in the left kidney lower pole measure up to 2.6 cm, they have not changed. No kidney stones or hydronephrosis. URINARY BLADDER: Partially decompressed. PELVIC VISCERA: Unremarkable PERITONEUM: No free air or fluid. LYMPH NODES: No lymphadenopathy. VASCULAR:Aorta is heavily calcified, aneurysmal dilatation of the abdominal aorta distally measure up to 3.3 x 4.5 cm, the lumen is partially thrombosed, this has not changed. BONES, ABDOMINAL WALL AND SOFT TISSUES: Age-appropriate changes of the spine and skeletal system, no destructive osteolytic or osteosclerotic bone lesion found CT/CT abdomen pelvis w con IMPRESSION: 1. Heterogeneous solid and cystic mass of the head and uncinate process of the pancreas there is slightly more prominent on today's exam, as previously suggested this is concerning for pancreatic neoplasm. There is dilatation of the pancreatic duct and intra-axial or hepatic biliary ducts. 2. On today's exam there is newly developed MILD PERIPANCREATIC FAT HAZINESS RAISING THE POSSIBILITY OF SUPERIMPOSED PANCREATITIS. Please correlate with the clinical presentation and laboratory data amylase lipase. 3. Biliary stent now in place. 4. Other findings as detailed above have not changed.
--- NOTE | ~2020-08-26 | CT_ITS ---
CT head/brain wo con CLINICAL INFORMATION: Reason for Exam wqeakness, r/o mass COMPARISON: No prior CT scan available for comparison. TECHNIQUE: Department standard protocol. This CT examination was performed using dose optimization techniques as appropriate, variously including the following: *Automated exposure control *Adjustment of mA and/or kV according to patient size (this includes techniques or standardized protocols for targeted exams where dose is matched to indication/reason for exam; i.e. extremities or head) *Use of iterative reconstruction technique DLP: 1141 mGy-cm FINDINGS: CEREBRAL HEMISPHERES: There is no evidence of intra-axial or extra-axial mass, hemorrhage or acute infarct. BRAIN PARENCHYMA: Normal cortez-white matter differentiation. SUBDURAL SPACE: No bleed. BASAL GANGLIA AND PINEAL GLAND: Unremarkable VENTRICLES: Symmetric and normal in size. CEREBELLUM AND BRAINSTEM: No space-occupying mass, hemorrhage or acute infarct. CEREBELLOPONTINE ANGLES: No lesion found. ORBITS: No intraorbital mass. VESSELS: Unremarkable SKULL BASE: Unremarkable INCLUDED SINUSES AT SKULL BASE: Clear SKULL AND SKIN: No fracture or bone lesion found. CT/CT head/brain wo con IMPRESSION: Limited noncontrasted study. No CT evidence of intracranial space-occupying mass, bleed or infarct. Normal CT scan does not rule out the possibility of hyperacute infarct in the first 12 hours. If patient symptoms persist may consider correlation with MRI, which is more sensitive for early acute infarct.
--- NOTE | ~2020-08-26 | XR_ITS ---
EXAMINATION: XR CHEST CLINICAL INFORMATION: Weakness COMPARISON: Previous chest x-rays most recent September 2018 TECHNIQUE: 2 views of the chest were obtained. FINDINGS: The cardiac and mediastinal contours are stable. There is subsegmental atelectasis at the lung bases. Lungs are otherwise clear. There is no pleural effusion or pneumothorax. There is an old right posterior fifth rib fracture. Bony structures are otherwise unremarkable. XR/XR chest 2V IMPRESSION: No evidence for acute disease in the chest. Subsegmental atelectasis at the lung bases.
[2020-08-26 12:58] VITALS: BP 128/75; PULSE 122; RESP 16; TEMP 36.4; O2SAT 99; BMI 20.3
--- NOTE | 2020-08-26 13:50 | ECG_ITS ---
Test Reason : WEAKNESS Blood Pressure : / mmHG Vent. Rate : 095 BPM Atrial Rate : 095 BPM P-R Int : 136 ms QRS Dur : 076 ms QT Int : 370 ms P-R-T Axes : 045 037 039 degrees QTc Int : 464 ms Sinus rhythm with occasional Premature ventricular complexes Nonspecific ST abnormality Abnormal ECG When compared with ECG of 07-JUL-2018 09:07, No significant changes seen Referred By: Nancy Hobbs Electronically Signed By:GRAHAM PEREZ
--- NOTE | 2020-08-26 13:53 | ED.WEAKNESS ---
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 Patient tells me since discharge she has followed up with 2 different surgical oncologist for surgical options. Patient tells me he has decided to move forward with chemotherapy with Dr Roy and NO surgical intervention. He has not started chemotherapy yet. He does have follow-up next Saturday with Dr. Ayala from GI to determine if the stent needs to be changed from plastic stent to a more permanent stent. Patient denies any vomiting or nausea. No diarrhea, fevers, chills, cough. He does have some shortness of breath which he has noticed over the last few weeks. No associated chest pain, leg swelling or pain. Related Data Home Medications Medication Instructions Recorded Confirmed meclizine 25 mg tablet 25 mg PO BID 02/04/20 08/26/20 metoprolol tartrate 25 mg tablet 25 mg PO BID 02/04/20 08/26/20 omeprazole 10 mg capsule,delayed 10 mg PO BID cap 02/04/20 08/26/20 release Centrum Silver Men 1 tab PO DAILY 07/13/20 08/26/20 allopurinol 100 mg PO DAILY 07/13/20 08/26/20 megestrol 10 ml PO BID 08/26/20 08/26/20 simvastatin 40 mg PO BEDTIME 08/26/20 08/26/20 sucralfate 10 ml PO QID 08/26/20 08/26/20 Previous Rx's Medication Instructions Recorded oxycodone 5 mg PO Q6H PRN #10 tab 08/26/20 Allergies Allergy/AdvReac Type Severity Reaction Status Date / Time No Known Allergies Allergy Verified 08/26/20 13:04 [No Known Allergies*] Review of Systems Review of Systems: Yes all other systems are reviewed and are negative Constitutional: Constitutional: Reports no additional constitutional complaints, Denies body ache(s), Denies chills, Denies fever(s), Denies headache(s), Reports poor appetite and Reports weakness Eyes: Eyes: Reports no additional eye complaints and Denies change in vision ENT: Reports system reviewed and no additional complaints, except as documented, Denies dizziness, Denies headache(s), Denies nasal congestion, Denies nasal discharge and Denies neck pain Cardiovascular: Cardiovascular: Reports no additional cardiovascular complaints, Denies chest pain, Denies leg edema and Reports dyspnea Respiratory: Respiratory: Reports no additional respiratory complaints, Denies cough and Reports dyspnea Gastrointestinal: Gastrointestinal: Reports no additional gastrointestinal complaints, Reports abdominal pain, Denies diarrhea, Denies nausea and Denies vomiting Genitourinary: Genitourinary: Denies urinary incontinence Musculoskeletal: Musculoskeletal: Reports no additional musculoskeletal complaints, Denies back pain, Denies arthralgias, Denies joint swelling, Denies neck pain, Denies numbness and Denies tingling Integumentary/Breasts: Skin/Breast: Reports system reviewed and no additional complaints, except as docu and Denies rash Neurologic: Reports system reviewed and no additional complaints, except as documented, Denies Abnormal speech present, Denies dizziness, Denies headache(s), Denies numbness, Denies tingling and Reports weakness PMFSH Past Medical History Attestation statement: The following information was validated with the patient. Source: old records reviewed and nursing notes reviewed Medical History Abdominal aortic aneurysm without rupture Abnormal LFTs Achilles tendinitis, left leg Adenocarcinoma of gastroesophageal junction Anemia Cholelithiasis Essential hypertension Gallstones Gout Hx of iron deficiency anemia Mixed dyslipidemia Surgical History Hx of esophagectomy Family History Family History Father No problems noted. Mother No problems noted. Social History Social History Household Members: Significant Other Housing: House Do you presently have visiting nurse or other home services: No Alcohol intake: never Patient Tobacco Use Status: Former Tobacco user Quit Date: greater than 30 years ago Tobacco use type: Cigarette Advance Directives: Yes Advance Directives on File: Yes Advance Directives Date on File: 07/13/20 service: Yes Current occupational status: retired Physical Exam Vital Signs: Vital Signs: Last Vital Signs Temp 98.2 F 08/26/20 18:00 Pulse 63 08/26/20 18:00 Resp 16 08/26/20 18:00 BP 125/75 08/26/20 18:00 Pulse Ox 99 08/26/20 18:00 Body Mass Index 20.3 Const: Other: thin appearing tacky MM General: alert Orientation/consciousness: patient oriented x3 Limitations: no limitations HENMT: Head: Yes normal to inspection Ears: hearing grossly normal bilaterally General nose exam: Normal external nose present Face and sinus: Yes normal facial exam Mouth: Normal oral and palatal mucosa present Throat: Yes posterior oropharynx normal, Yes tonsils normal and Yes uvula midline Eyes: General: appearance normal, both eyes and all related structures Visual Zepeda: normal visual zepeda by confrontation Alignment and Position: alignment normal Periorbital: periorbital findings normal Eyelids: Yes eyelids normal Conjunctivae: conjunctivae normal Sclerae: scleral abnormal (bilateral icterus ) Corneas: corneas normal Pupils: Equal, round and reactive pupils present EOM: EOMs intact bilaterally Direct Ophthalmoscopy: normal light reflex Neck: Neck: Yes normal visual inspection, Yes full ROM, Yes no lymphadenopathy and Yes no meningeal signs Chest: Chest palpation & inspection: normal inspection of the chest Resp: Effort & Inspection: normal respiratory effort Auscultation: clear to auscultation bilaterally Cardio: Rate: regular rate Rhythm: regular rhythm Peripheral pulses: Peripheral pulses 2+ throughout GI: Inspection: Yes normal to inspection Palpation (GI): Soft to palpation and nontender Auscultation: normal bowel sounds Back/Spine/Pelvis: Thoracic/Lumbar Spine: thoracic and lumbar spine normal to inspection Skin: General skin exam: no rashes or lesions noted Neuro: General: patient oriented x3, moves all extremities, no meningeal signs, no focal motor deficits and normal sensation to monofilament Cranial nerves: Yes Equal, round and reactive pupils present Cognition (Neuro): normal cognition Speech: No Abnormal speech present Extrem: General: Yes normal to inspection, Yes no pedal edema and Yes no calf tenderness Course Course Course Narrative: 80 year old male with a new diagnosis of pancreatic cancer who was not initiated any treatment is here with complaints of poor appetite, generalized weakness, upper abdominal discomfort and dark urine for the last 5 days. On exam I am unable to elicit any abdominal pain. He is diffusely weak. He has tacky mucous membranes. He does have scleral icterus. Will check labs, UA, chest x-ray, EKG, COVID screen, CT A/P, CT head 1845-labs show mildly elevated LFTs but really unchanged from baseline. Other labs are unremarkable. Chest x-ray and head CT unremarkable. CT abdomen shows worsening pancreatic neoplasm with mild peripancreatic fat haziness raising the possibility of superimposed pancreatitis. Normal lipase. Reviewed the CT with Dr. Garay. Likely worsening pancreatice neoplasm as does not fit clinical picture of pancreatitis. I did discuss with the patient the results of his CT scan. He tells me he has an appointment on Saturday with Dr. Roy 03:00 o'clock. I did offer admission to the patient if he feels like this would be beneficial for him. He feels like he would like to be home this weekend with his to discuss his goals of care. He feels safe being home and does not feel like he needs placement in a short-term rehab. His agrees with this. Will send home with short course of analgesia if needed. Patient on discharge is feeling improved and denies abdominal pain and is tolerating p.o. with no vomiting episodes. The case assembler also met with the family. MDM - Weakness Differential Diagnosis Differential diagnosis: Likely UTI, anemia, hypoglycemia, hypothyroidism, rhabdomyolysis, sepsis and dehydration Medical Records Attestation: I reviewed the patient's medical records. Lab Data Attestation: I reviewed the patient's lab results. Result diagrams: 08/26/20 14:51 08/26/20 14:51 Labs: Lab Results 08/26/20 08/26/20 08/26/20 Range/Units 14:38 14:51 14:51 WBC 10.0 (4.8-10.8) X10*3/uL RBC 4.97 (4.60-5.80) X10*6/uL Hgb 15.2 (14.0-18.0) g/dl Hct 43.3 (42-52) % MCV 87.1 (80-98) fL MCH 30.6 (27.0-33.0) pg MCHC 35.1 (31.0-36.0) g/dl RDW 15.0 (11.0-16.0) % Plt Count 289 D (160-400) X10*3/uL MPV 10.2 (9.4-12.4) fL Immature Gran % (Auto) 1.8 H (0.0-0.4) % Neut % (Auto) 78.6 H (45-73) % Lymph % (Auto) 11.9 L (20-40) % [place] % (Auto) 6.9 (2-11) % Eos % (Auto) 0.6 (0-4) % Baso % (Auto) 0.2 (0-2) % Lymph # (Auto) 1.2 (1.2-4.9) X10*3/uL [place] # (Auto) 0.7 (0.1-1.2) X10*3/uL Eos # (Auto) 0.1 (0.0-0.4) X10*3/uL Baso # (Auto) 0.0 (0.0-0.2) X10*3/uL Abs Immat Gran (auto) 0.18 H (0.00-0.03) X10*3/uL Absolute Neuts (auto) 7.8 (2.0-8.3) X10*3/uL Absolute Nucleated RBC 0.000 (0.0-0.012) X10*3/uL Nucleated RBC % (auto) 0.0 (0.0-0.2) /100WBC PT 15.7 H (9.9-13.0) SEC INR 1.4 H (0.9-1.1) Sodium (135-145) mmol/L Potassium (3.3-5.1) mmol/L Chloride (96-108) mmol/L Carbon Dioxide (22-29) mmol/L Anion Gap (12-20) BUN (9-16) mg/dL Creatinine (0.5-1.4) mg/dL Estim Creat Clear Calc Estimated GFR Random Glucose (60-115) mg/dL Lactic Acid (0.5-2.0) mmol/L Calcium (8.4-10.2) mg/dL Magnesium (1.6-2.6) mg/dL Total Bilirubin (0.0-1.0) mg/dL Direct Bilirubin (0.0-0.5) mg/dL AST (5-37) U/L ALT (0-40) U/L Alkaline Phosphatase (39-117) U/L Total Protein (6.5-8.0) g/dL Albumin (3.5-5.0) g/dL Lipase (8-78) U/L Urine Color Urine Appearance Urine pH (5.0-8.0) Ur Specific [place] (1.005-1.025) Urine Protein (NEG-TRACE) MG/DL Urine Glucose (UA) (NEG) MG/DL Urine Ketones (NEG) MG/DL Urine Blood (NEG) Urine Nitrite (NEG) Ur Leukocyte Esterase (NEG) Urine RBC (0) /HPF Urine WBC (0-4) /HPF Ur Squamous Epith Cells /LPF Amorphous Sediment /LPF Urine Bacteria /LPF COVID-19 (AIDE) Negative (Negative) COVID-19 Clin Com See Note 08/26/20 08/26/20 08/26/20 Range/Units 14:51 14:51 19:00 WBC (4.8-10.8) X10*3/uL RBC (4.60-5.80) X10*6/uL Hgb (14.0-18.0) g/dl Hct (42-52) % MCV (80-98) fL MCH (27.0-33.0) pg MCHC (31.0-36.0) g/dl RDW (11.0-16.0) % Plt Count (160-400) X10*3/uL MPV (9.4-12.4) fL Immature Gran % (Auto) (0.0-0.4) % Neut % (Auto) (45-73) % Lymph % (Auto) (20-40) % [place] % (Auto) (2-11) % Eos % (Auto) (0-4) % Baso % (Auto) (0-2) % Lymph # (Auto) (1.2-4.9) X10*3/uL [place] # (Auto) (0.1-1.2) X10*3/uL Eos # (Auto) (0.0-0.4) X10*3/uL Baso # (Auto) (0.0-0.2) X10*3/uL Abs Immat Gran (auto) (0.00-0.03) X10*3/uL Absolute Neuts (auto) (2.0-8.3) X10*3/uL Absolute Nucleated RBC (0.0-0.012) X10*3/uL Nucleated RBC % (auto) (0.0-0.2) /100WBC PT (9.9-13.0) SEC INR (0.9-1.1) Sodium 144 (135-145) mmol/L Potassium 3.9 (3.3-5.1) mmol/L Chloride 111 H (96-108) mmol/L Carbon Dioxide 21 L (22-29) mmol/L Anion Gap 16 (12-20) BUN 24 H (9-16) mg/dL Creatinine 0.87 (0.5-1.4) mg/dL Estim Creat Clear Calc 59.6 Estimated GFR > 60 Random Glucose 122 H (60-115) mg/dL Lactic Acid 1.6 (0.5-2.0) mmol/L Calcium 9.2 (8.4-10.2) mg/dL Magnesium 1.9 (1.6-2.6) mg/dL Total Bilirubin 4.3 H (0.0-1.0) mg/dL Direct Bilirubin 3.1 H (0.0-0.5) mg/dL AST 36 (5-37) U/L ALT 43 H (0-40) U/L Alkaline Phosphatase 445 H D (39-117) U/L Total Protein 6.5 (6.5-8.0) g/dL Albumin 2.9 L (3.5-5.0) g/dL Lipase < 4 L (8-78) U/L Urine Color YELLOW Urine Appearance HAZY Urine pH 6.0 (5.0-8.0) Ur Specific [place] <= 1.005 (1.005-1.025) Urine Protein 1+ H (NEG-TRACE) MG/DL Urine Glucose (UA) NEG (NEG) MG/DL Urine Ketones NEG (NEG) MG/DL Urine Blood NEG (NEG) Urine Nitrite NEG (NEG) Ur Leukocyte Esterase NEG (NEG) Urine RBC 0 (0) /HPF Urine WBC 0-2 (0-4) /HPF Ur Squamous Epith Cells 2+ /LPF Amorphous Sediment 1+ /LPF Urine Bacteria TRACE /LPF COVID-19 (AIDE) (Negative) COVID-19 Clin Com Imaging Data Chest x-ray: Attestation: I personally reviewed and interpreted this imaging study as follows: Radiologist's impression: [facility] [place], [place] [id number] ReportSigned Patient: Shaka Bridges FMR#: [id number]: 9Acct:[id number]/Sex: 80 / MADM Date: 08/26/20Loc: HO.EDAttending Dr: Ordering Physician: MICKIE ERICKSON NP Date of Service: 08/26/20 Procedure(s): XR chest 2V Accession Number(s): [id number] cc: MICKIE ERICKSON NP~ EXAMINATION: XR CHEST CLINICAL INFORMATION: Weakness COMPARISON: Previous chest x-rays most recent September 2018 TECHNIQUE: 2 views of the chest were obtained. FINDINGS: The cardiac and mediastinal contours are stable. There is subsegmental atelectasis at the lung bases. Lungs are otherwise clear. There is no pleural effusion or pneumothorax. There is an old right posterior fifth rib fracture. Bony structures are otherwise unremarkable. XR/XR chest 2V IMPRESSION: No evidence for acute disease in the chest. Subsegmental atelectasis at the lung bases. CT scan - head: Attestation: I personally reviewed and interpreted this imaging study as follows: Radiologist's impression: IMPRESSION: Limited noncontrasted study. No CT evidence of intracranial space-occupying mass, bleed or infarct. Normal CT scan does not rule out the possibility of hyperacute infarct in the first 12 hours. If patient symptoms persist may consider correlation with MRI, which is more sensitive for early acute infarct. CT scan - abdomen: Attestation: I personally reviewed and interpreted this imaging study as follows: Radiologist's impression: CT/CT abdomen pelvis w con IMPRESSION: 1. Heterogeneous solid and cystic mass of the head and uncinate process of the pancreas there is slightly more prominent on today's exam, as previously suggested this is concerning for pancreatic neoplasm. There is dilatation of the pancreatic duct and intra-axial or hepatic biliary ducts. 2. On today's exam there is newly developed MILD PERIPANCREATIC FAT HAZINESS RAISING THE POSSIBILITY OF SUPERIMPOSED PANCREATITIS. Please correlate with the clinical presentation and laboratory data amylase lipase. 3. Biliary stent now in place. 4. Other findings as detailed above have not changed. ECG Data Attestation: I personally reviewed and interpreted this ECG as follows: ECG interpretation date: 08/26/20 ECG interpretation time: 14:12 Interpretation: Sinus rhythm with occasional PVCs, normal DC, normal QRS, normal QT Discharge Plan Discharge Clinical Impression: Pancreatic adenocarcinoma, Weakness Patient Disposition: Home, Self-Care Instructions: Pancreatic Cancer (DC) Additional Instructions: Keep your appointment on Saturday with your oncologist Return here if you feel like you are unsafe to be home (increasing pain, weakness, 2 or more vomiting episodes) Unfortunately your CT scan showed a worsening pancreatic mass. Prescriptions: New oxycodone 5 mg tablet 5 mg PO Q6H PRN (Reason: pain) Qty: 10 RF: 0 No Action allopurinol 100 mg tablet 100 mg PO DAILY RF: 0 Centrum Silver Men 300-600-300 mcg Tablet 1 tab PO DAILY RF: 0 megestrol 400 mg/10 mL (40 mg/mL) suspension 10 ml PO BID RF: 0 sucralfate 100 mg/mL Suspension 10 ml PO QID RF: 0 simvastatin 80 mg Tablet 40 mg PO BEDTIME RF: 0 omeprazole 10 mg capsule,delayed release(DR/EC) 10 mg PO BID RF: 0 meclizine 25 mg tablet 25 mg PO BID RF: 0 metoprolol tartrate 25 mg tablet 25 mg PO BID RF: 0 Referrals: Lor Woods MD [Primary Care Provider] - 2 days Interventions: ED Discharge Assessment Last Done: 08/26/20 19:44 Discharge Date/Time: 08/26/20 19:45
[2020-08-26 14:59] LABS: MANUAL DIFF FLAG NO
[2020-08-26 15:02] LABS: Basophils Percent Auto 0.2 % (0-2); Eosinophils Absolute Auto 0.1 X10*3/uL (0.0-0.4); Eosinophils Percent Auto 0.6 % (0-4); Hematocrit 43.3 % (42-52); Hemoglobin 15.2 g/dl (14.0-18.0); Imm Gran Abs Auto 0.18 X10*3/uL (0.00-0.03); Imm Gran Pct Auto 1.8 % (0.0-0.4); Lymphocytes Absolute Auto 1.2 X10*3/uL (1.2-4.9); Lymphocytes Percent Auto 11.9 % (20-40); Mean Corpuscular HGB Conc 35.1 g/dl (31.0-36.0); Mean Corpuscular Hemoglobin 30.6 pg (27.0-33.0); Mean Corpuscular Volume 87.1 fL (80-98); Mean Platelet Volume 10.2 fL (9.4-12.4); Monocytes Absolute Auto 0.7 X10*3/uL (0.1-1.2); Monocytes Percent Auto 6.9 % (2-11); Neutrophils Absolute Auto 7.8 X10*3/uL (2.0-8.3); Neutrophils Percent Auto 78.6 % (45-73); Platelet Count 289 X10*3/uL (160-400); Red Blood Count 4.97 X10*6/uL (4.60-5.80)
[2020-08-26 15:07] LABS: INTERNATIONAL NORM RATIO 1.4 (0.9-1.1); Prothrombin Time 15.7 SEC (9.9-13.0)
[2020-08-26 15:17] LABS: COVID-19 Test Negative (Negative)
[2020-08-26 15:20] LABS: Lactic Acid 1.6 mmol/L (0.5-2.0)
[2020-08-26 15:26] LABS: Alanine Aminotransferase 43 U/L (0-40); Albumin Level 2.9 g/dL (3.5-5.0); Alkaline Phosphatase 445 U/L (39-117); Anion Gap 16 (12-20); Aspartate Amino Transferase 36 U/L (5-37); Bilirubin Direct 3.1 mg/dL (0.0-0.5); Bilirubin Total 4.3 mg/dL (0.0-1.0); Blood Urea Nitrogen 24 mg/dL (9-16); Calcium 9.2 mg/dL (8.4-10.2); Carbon Dioxide 21 mmol/L (22-29); Chloride 111 mmol/L (96-108); Creatinine Clr Calc Pharmacy 59.6; Estimated Glomerular Filt Rate > 60; Glucose Random 122 mg/dL (60-115); Lipase < 4 U/L (8-78); Magnesium 1.9 mg/dL (1.6-2.6); Potassium 3.9 mmol/L (3.3-5.1); Sodium 144 mmol/L (135-145); Total Protein 6.5 g/dL (6.5-8.0)
[2020-08-26] MEDS: 0.9 % Sodium Chloride 1,000 ML 999 ML IV ×2 (15:28→17:45)
[2020-08-26 16:00] VITALS: BP 125/80; PULSE 81; RESP 16; TEMP 36.8; O2SAT 98
[2020-08-26] MEDS: ondansetron HCL 4 MG/2 ML VIAL IVPUSH (16:00)
[2020-08-26] MEDS: Morphine Sulfate 4 MG/ML CARTRIDGE IVPUSH (16:02)
[2020-08-26] MEDS: iohexoL 350 MG/ML 100 ML INFUS..BTL IV (17:18)
--- NOTE | 2020-08-26 17:47 | MHC.CM.ED ---
Met with patient and /HCP Niki Bridges ([phone]). Pt appears significantly weaker, more jaundiced and dehydrated, with very dry mucus membranes, lips and teeth. reports weight loss, weakness and sleeping off and on since Saturday. Pt able to ambulate to [place]. Lives with . No services and no DME at home. Pt and have seen specialists for second opinion/surgical options- no surgical options for pancreatic cancer have been offered. Has appointment with Dr. Roy on Saturday at 3:30. Pt will need a wheelchair in order to go to appointment. Pt requesting mor IV bags to help with his dehydration and something to help stimulate his appetite. Pt does have some pain and does not have any pain mediation at home. Pt medicated with IV meds here. Awaiting results of CT scans. Spoke with Nancy Cervantes about above concerns, including admission for pain management and IV fluids. Nancy will re-evaluate once CT scan results are available. Unsure of D/C plan at this time. to provide transportation. CM to follow for d/c needs.
[2020-08-26 18:00] VITALS: BP 125/75; PULSE 63; RESP 16; TEMP 36.8; O2SAT 99
--- NOTE | 2020-08-26 18:42 | MHC.CM.ED ---
Nancy Cervantes met with pt and CM. CT of abd/pelvis shows worsening of pancreatic mass. See report. Pt and are in agreement to go home. Nancy will write prescription for pain medication. Contact card given. CM will assist pt with W.C. to get into Dr. Bedolla office, as is concerned that pt is too weak. Pt and do not want script for W.C. at this time. Will speak with Dr. Roy. will contact [facility] about possibility of borrowing a wheelchair. CM is more that happy to help pt and on Saturday for a 3:30 appointment with a wheelchair , Niki instructed to call CM when she arrives at hospital. CM to follow for d/c needs.
[2020-08-26 19:07] LABS: Appearance Urine HAZY; Color Urine YELLOW; Glucose Urine UA NEG (NEG); Leukocyte Esterase Urine NEG (NEG); Nitrite Urine NEG (NEG); Specific Gravity - Urine <= 1.005 (1.005-1.025); Urine Blood NEG (NEG); Urine Ketones NEG (NEG); Urine Protein 1+ MG/DL (NEG-TRACE)
[2020-08-26 19:16] LABS: Amorphous Sediment Urine 1+ /LPF; Bacteria Urine TRACE /LPF; RBC Urine 0 /HPF (0); Squamous Epithelial Cell Urine 2+ /LPF; WBC Urine 0-2 /HPF (0-4)
== END 2020-08-26 19:45 | disposition home or self-care (01) ==
PROVIDERS: Nurse Practitioner Family; Emergency Provider Emergency Medicine; PCP Internal Medicine
DX: C25.9 Malignant neoplasm of pancreas, unspecified (principal); R53.1 Weakness; R79.89 Other specified abnormal findings of blood chemistry; Z20.822 Contact with and (suspected) exposure to COVID-19; Z79.899 Other long term (current) drug therapy; Z87.891 Personal history of nicotine dependence
CPT/HCPCS: 36415; 70450; 71046; 74177; 80048; 80076; 81001; 83605; 83690; 83735; 85025; 85610; 87040; 87635; 93005; 96365; 96375; 99284; J2270; J2405; Q9967